=== PATIENT | male | born 1940 | race African-American/Black ===

== ENCOUNTER 2017-06-08 14:13 | Inpatient (IN) | payer MEDICARE ==
[~2017-06-08] VITALS: Ht 180.3 cm; Wt 74.8 kg
--- NOTE | 2017-06-08 14:27 | Emergency Room Report ---
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 He reported feeling dizzy prior to being seen at clinic. He had just taken his blood pressure medications. He reported taking Zofran. The patient recently been given Neulasta after being noted neutropenia.The patient's recent white blood count done earlier today was 0.7 with Anc. 330. He reports having increased hiccups Allergies: Coded Allergies: No Known Allergies (Unverified , 06/08/17) Patient History Past Medical History: see triage record, HTN, other Reviewed Nursing Documentation: PMH: Agreed, PSxH: Agreed Nursing Documentation-PMH Past Medical History: No History, Except For Hx Hypertension: Yes Hx Cancer: Yes - HEAD AND NECK Review of Systems All Other Systems: negative except mentioned in HPI Physical Exam Vital Signs Date Time Temp Pulse Resp B/P (MAP) Pulse Ox O2 Delivery O2 Flow Rate FiO2 06/08/17 14:10 97.9 76 20 133/73 100 Room Air Sp02 EP Interpretation: reviewed, normal General Appearance: normal inspection, alert, Chronically Ill Head: atraumatic ENT: normal ENT inspection, hearing grossly normal, normal voice Neck: normal inspection, full range of motion, supple, no bony tend, other - right sided neck mass Respiratory: normal inspection, lungs clear, normal breath sounds, no respiratory distress, no retraction, no wheezing Cardiovascular #1: regular rate, rhythm, no edema Gastrointestinal: normal inspection, normal bowel sounds, non tender, soft, no guarding, no hernia Genitourinary: no CVA tenderness Musculoskeletal: normal inspection, back normal, normal range of motion Neurologic: normal inspection, alert, oriented x3, responsive, strings teacher III-XII nml as tested, speech normal Psychiatric: normal inspection, judgement/insight normal, mood/affect normal Skin: normal inspection, normal color, no rash Medical Decision Making Diagnostic Impression: Primary Impression: Neutropenia Additional Impressions: Hypotension Near syncope Squamous cell carcinoma of larynx ER Course Patient presented for hypotension generalized weakness. Differential diagnosis included was not limited to neutropenic fever, volume depletion, sepsis, myocardial infarction, pulmonary embolism among others.Because of complexity of patient's case laboratory testing and imaging studies were ordered. Patient was noted to have prior history of Right bundle branch block. Patient was noted to be recently on steroids. Patient was started on IV fluids and IV antibiotics for neutropenia. Dr. Joseph March was contacted for inpatient management. Labs Test 06/08/17 14:56 Lactic Acid Level 2.10 mmol/L (0.66-2.22) EKG Diagnostic Results Rate: other - right bundle branch block Rhythm: NSR ST Segments: no acute changes Rhythm Strip Diag. Results EP Interpretation: yes Rhythm: NSR, no PVC's, no ectopy Last Vital Signs Date Time Temp Pulse Resp B/P (MAP) Pulse Ox O2 Delivery O2 Flow Rate FiO2 06/08/17 14:10 97.9 76 20 133/73 100 Room Air Status: unchanged Disposition: ADMITTED INPATIENT Condition: Johnathan Bearden Jun 08, 2017 14:27
[2017-06-08 14:40] VITALS: BP 133/73
[2017-06-08] MEDS ORDERED: ZOFRAN 4 MG4 MG/2 ML ORAL (14:46)
[2017-06-08] MEDS ORDERED: AZOR 10-20 MG1 EACH ORAL (14:46)
[2017-06-08] MEDS ORDERED: NEULASTA6 MG/0.61 SQ (14:46)
[2017-06-08] MEDS ORDERED: INDOCIN75 MG ORAL (14:49)
[2017-06-08] MEDS ORDERED: TENORMIN50 MG ORAL (14:49)
[2017-06-08] MEDS ORDERED: RAMIPRIL5 MG ORAL (14:49)
[2017-06-08] MEDS ORDERED: PREDNISONE20 MG ORAL (14:49)
[2017-06-08 15:34] LABS: REFLEX LACTIC ACID YES OR NO YES
[2017-06-08] MEDS ORDERED: Cefepime HCl 1 GM in D5W 55 ML IVPB ONE (15:45)
[2017-06-08 17:00] VITALS: BP 101/72
[2017-06-08] MEDS ORDERED: Miralax 17gm pkt ORAL PRN (17:45)
[2017-06-08] MEDS ORDERED: Albuterol/Ipratropium 3ml neb HHN PRN (17:45)
[2017-06-08] MEDS ORDERED: Morphine Sulfate 2mg/ml Inj IVP PRN (17:45)
--- NOTE | 2017-06-08 17:48 | Consultation ---
History of Present Illness General Date patient seen: Jun 08, 2017 Chief Complaint: Generalized Weakness Present Illness HPI 76-year-old male with recently diagnosed laryngeal cancer, Hypertension brought in by EMS from oncology clinic after the dizziness low blood pressure. Patient recently began chemotherapy with cisplatin, taxodere, Prednisone, 5Fluorouracil. He is feeling dizzy prior to being seen at clinic. He had just taken his blood pressure medications. He reported taking Zofran. Allergies: Coded Allergies: No Known Allergies (Unverified , 06/08/17) Medication History Scheduled Amlodipine Bes/Olmesartan Med (Tylor 10-20 Mg Tablet), Unknown Dose ORAL DAILY, ( Reported) Atenolol* (Tenormin*), 50 MG ORAL BID, (Reported) Pegfilgrastim (Neulasta), 6 MG SQ after chemo, (Reported) Prednisone* (Prednisone*), 20 MG ORAL BID, (Reported) Ramipril* (Ramipril*), 5 MG ORAL BID, (Reported) Scheduled PRN Ondansetron* (Zofran*), 8 MG ORAL PRN PRN for Nausea & Vomiting, (Reported) Miscellaneous Medications Indomethacin (Indocin), 75 MG ORAL, (Reported) Patient History Healthcare decision maker N Resuscitation status Advanced Directive on File Review of Systems Constitutional: Reports: no symptoms Eye: Reports: no symptoms ENT: Reports: no symptoms Physical Exam General Appearance: WD/WN Lines, tubes and drains: peripheral, PICC HEENT: normocephalic, anicteric Neck: non-tender, normal alignment Breasts: no masses Cardiovascular/Chest: normal peripheral pulses, regular rhythm Last 24 Hour Vital Signs Date Time Temp Pulse Resp B/P (MAP) Pulse Ox O2 Delivery O2 Flow Rate FiO2 06/08/17 14:10 97.9 76 20 133/73 100 Room Air Laboratory Tests Test 06/08/17 14:56 06/08/17 17:15 Lactic Acid Level 2.10 mmol/L (0.66-2.22) Pending Height (Feet): 5 Height (Inches): 11.00 Weight (Pounds): 165 Medications Current Medications Medications (Trade) Dose Ordered Sig/Baron Route PRN Reason Start Time Stop Time Status Last Admin Dose Admin Acetaminophen (Tylenol) 650 mg Q4H PRN ORAL fever 06/08/17 17:45 07/08/17 17:44 UNV Albuterol/ Ipratropium (Albuterol/ Ipratropium) 3 ml EVERY 4 HOURS PRN HHN Shortness of Breath 06/08/17 17:45 06/13/17 17:44 UNV Cefepime HCl 2 gm/ Dextrose 110 ml @ 220 mls/hr EVERY 12 HOURS IV 06/08/17 21:00 06/15/17 20:59 UNV Heparin Sodium (Porcine) (Heparin 5000 units/ml) 5,000 units EVERY 12 HOURS SUBQ 06/08/17 21:00 07/08/17 20:59 UNV Morphine Sulfate (Morphine Sulfate) 2 mg EVERY 4 HOURS PRN IVP Moderate Pain (Pain Scale 4-6) 06/08/17 17:45 06/15/17 17:44 UNV Nitroglycerin (Ntg) 0.4 mg Every 5 Minutes PRN SL Prn Chest Pain 06/08/17 17:45 07/08/17 17:44 UNV Ondansetron HCl (Zofran) 4 mg Q6H PRN IVP Nausea & Vomiting 06/08/17 17:45 07/08/17 17:44 UNV Polyethylene Glycol (Miralax) 17 gm DAILYPRN PRN ORAL Constipation 06/08/17 17:45 07/08/17 17:44 UNV Ramipril (Altace) 5 mg BID ORAL 06/08/17 18:00 07/08/17 17:59 UNV Temazepam (Restoril) 15 mg HSPRN PRN ORAL Insomnia 06/08/17 17:45 06/15/17 17:44 UNV Vancomycin HCl 1 gm/Dextrose 275 ml @ 183.3 mls/ hr Q24H IV 06/09/17 00:30 06/14/17 00:29 UNV Assessment/Plan Problem List: (1) Neutropenia ICD Codes: D70.9 - Neutropenia, unspecified SNOMED: 837412481 (2) Hypotension ICD Codes: I95.9 - Hypotension, unspecified SNOMED: 44783073 (3) Squamous cell carcinoma of larynx ICD Codes: C32.9 - Malignant neoplasm of larynx, unspecified SNOMED: 750858258 (4) Near syncope ICD Codes: R55 - Syncope and collapse SNOMED: 222218110 Assessment/Plan IV hydration check BC, urine culture Hematology evaluation NG tube GI evaluation check wbc. BRADLEY CLEANING Jun 08, 2017 17:48
[2017-06-08] MEDS ORDERED: Nitroglycerin Subl 0.4mg tab SL PRN (18:00)
[2017-06-08 18:41] VITALS: BP 150/78
[2017-06-08] MEDS ORDERED: Vancomycin 1.5 GM/D5W 250ML IVPB ONE (19:30)
[2017-06-08 20:00] VITALS: BP 109/66
[2017-06-08] MEDS ORDERED: Ramipril 5mg cap ORAL SCH (20:00)
[2017-06-08 20:27] LABS: MEAN CORPUSCULAR HEMOGLOBIN 29.4 PG (27.0-31.0); MEAN CORPUSCULAR HGB CONC 31.2 G/DL (32.0-36.0); MEAN CORPUSCULAR VOLUME 94 FL (80-99); PLATELET COUNT 85 K/UL (150-450); RED BLOOD COUNT 4.56 M/UL (4.70-6.10); RED CELL DISTRIBUTION WIDTH 11.3 % (11.6-14.8)
[2017-06-08 20:41] LABS: ANION GAP 5 mmol/L (5-15); CALCIUM 8.3 MG/DL (8.5-10.1); CARBON DIOXIDE 31 MMOL/L (21-32); CHLORIDE 93 MMOL/L (98-107); CREATININE 1.5 MG/DL (0.55-1.30); POTASSIUM 3.5 MMOL/L (3.5-5.1); SODIUM 129 MMOL/L (136-145)
[2017-06-08 21:01] LABS: WHITE BLOOD COUNT 0.4 K/UL (4.8-10.8)
--- NOTE | 2017-06-08 21:01 | History & Physical ---
History and Physical History & Physicial Joseph March MD Jun 08, 2017 21:01
[2017-06-08 21:55] LABS: ANISOCYTOSIS 1+; HYPOCHROMASIA 1+; LYMPHOCYTES % (MANUAL) 19 % (20-45); NEUTROPHILS % (MANUAL) 57 % (45-75); PLATELET MORPHOLOGY NORMAL; TOTAL CELLS COUNTED 21
[2017-06-08 21:56] LABS: BAND NEUTROPHILS % (MANUAL) 0 % (0-8); BASOPHILS % (MANUAL) 0 % (0-2); EOSINOPHILS % (MANUAL) 0 % (0-3); PLATELET ESTIMATE DECREASED
[2017-06-08] MEDS: D5 1/2NS w/KCl 20mEq 1,000 ML IV SCH (22:17)
--- NOTE | 2017-06-08 22:45 | History and Physical Report ---
DATE OF ADMISSION: 06/08/2017 CHIEF COMPLAINT: Generalized weakness, hiccups, difficulty swallowing, and dizziness. 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 The patient presented to the hospital from Dr. Milton Ibrahim, oncologist, from [facility]. Due to the severe weakness, the patient felt dizzy while he was seen in the clinic. He was found to be hypotensive and he reported that he has been taking Zofran for nausea as well as Neulasta for neutropenia. The patient's blood count was noted to be 0.7 today in the conveyor tender's office and subsequently, the patient was transferred to the hospital for further evaluation and therapy. Shortly after initial evaluation in the emergency room, the patient was admitted to the hospital with neutropenia, hypotension, near syncope, severe dehydration, and squamous cell carcinoma of the larynx. PAST MEDICAL HISTORY/PAST SURGICAL HISTORY: As above. History of laryngeal squamous cell carcinoma, recently diagnosed, underwent first cycle of chemotherapy. The patient has history of high blood pressure. Denies any past surgical history except tonsillectomy in childhood as well as Freire's Palsy. MEDICATIONS: At home significant for Tylor 10/20 mg one tablet daily, atenolol 50 mg twice a day, indomethacin 75 mg daily, Zofran 8 mg q.8 h. p.r.n., Neulasta 6 mg after chemo and prednisone 20 mg b.i.d., and ramipril 5 mg twice a day. ALLERGIES: No known drug allergies. SOCIAL HISTORY: No smoking, alcohol, or drugs. He is a retired anesthesiologist. FAMILY HISTORY: Significant for hypertension in father. REVIEW OF SYSTEMS: Mostly as above. Denies any dysuria or frequency. He complained about difficulty swallowing and eating. Denies any hemoptysis or hematochezia. Denies any bright red blood per rectum. Denies any double vision. Denies any seizure activity. Denies any bright red blood per rectum. PHYSICAL EXAMINATION: VITAL SIGNS: On admission, temperature 97.9 degrees, pulse of 76, respirations 20, and blood pressure 133/74. GENERAL: The patient awake, responsive, in no acute distress. HEAD AND NECK: Pupils equal and reactive to light. Anicteric. NECK: Supple. He has a mass in the neck area that was noted on the right side. No JVD was appreciated. LUNGS: Good air entry. No wheezing or rales. Decreased air in the bases. Poor inspiratory effort. HEART: S1 and S2. Regular rhythm. No gallops. ABDOMEN: Soft, nondistended, and nontender. Positive bowel sounds. EXTREMITIES: No cyanosis, clubbing, or edema. NEUROLOGIC: Cranial nerves II through XII grossly unremarkable. Motor is 5/5 in all extremities. Gait was not assessed due to the patient's status. PSYCHIATRIC: Mood is depressed. LABORATORY AND DIAGNOSTIC DATA: Laboratory on admission still pending, however, laboratory today from the [facility] noted that the patient has WBC of 0.7, hemoglobin of 15, hematocrit 46, and platelets are 78. Glucose is 205, BUN is 40, creatinine 1.5, sodium is 127, potassium is 3.5, chloride is 88, and bicarbonate is 27. Total bilirubin of 1.0. AST of 27, ALT of 25, and alkaline phosphatase 46. ASSESSMENT: 1. Neutropenic. 2. Severe dehydration and hypovolemia. 3. History of locally advanced laryngeal squamous cell carcinoma. 4. History of hypertension, presently hypotensive. 5. Thrombocytopenia. 6. Dysphagia. PLAN: Admit the patient to telemetry. We will follow up laboratory. Discussed with the patient as well as extensively at the bedside. Code status, Full Code. Discussed with the patient with regards to the bedside swallow study. If he fails the bedside swallow study, consider to have a PEG placement. Thorazine for hiccups. Code status is Full Code. We will resume home medications in the morning after the swallow study and we will try to discuss with Dr. Ibrahim, conveyor tender, in the morning and DVT prophylaxis with SCD. Joseph March M.D. DR: Balbina JOB#: [id number] CC:
[2017-06-08] MEDS ORDERED: Cefepime HCl 2 GM in D5W 55 ML IV SCH (23:00)
[2017-06-09] MEDS ORDERED: Vancomycin 1 GM in D5W 275 ML IV SCH (00:30)
[2017-06-09 04:00] VITALS: BP 134/73
[2017-06-09 06:01] LABS: INR 1.1 (0.9-1.1)
[2017-06-09 06:07] LABS: ALANINE AMINOTRANSFERASE 20 U/L (12-78); ALBUMIN/GLOBULIN RATIO 0.6 (1.0-2.7); ANION GAP 4 mmol/L (5-15); ASPARTATE AMINO TRANSFERASE 19 U/L (15-37); CALCIUM 8.2 MG/DL (8.5-10.1); CARBON DIOXIDE 31 MMOL/L (21-32); CHLORIDE 93 MMOL/L (98-107); CREATININE 1.5 MG/DL (0.55-1.30); POTASSIUM 3.3 MMOL/L (3.5-5.1); SODIUM 128 MMOL/L (136-145); TOTAL PROTEIN 6.2 G/DL (6.4-8.2)
[2017-06-09 06:25] LABS: MEAN CORPUSCULAR HEMOGLOBIN 30.9 PG (27.0-31.0); MEAN CORPUSCULAR HGB CONC 33.4 G/DL (32.0-36.0); MEAN CORPUSCULAR VOLUME 93 FL (80-99); PLATELET COUNT 84 K/UL (150-450); RED BLOOD COUNT 4.42 M/UL (4.70-6.10); RED CELL DISTRIBUTION WIDTH 11.2 % (11.6-14.8)
[2017-06-09 06:29] LABS: WHITE BLOOD COUNT 0.6 K/UL (4.8-10.8)
[2017-06-09 07:35] LABS: MAGNESIUM 1.3 MG/DL (1.8-2.4); PHOSPHORUS 2.9 MG/DL (2.5-4.9)
[2017-06-09 07:43] LABS: ANISOCYTOSIS 1+; BAND NEUTROPHILS % (MANUAL) 0 % (0-8); BASOPHILS % (MANUAL) 0 % (0-2); EOSINOPHILS % (MANUAL) 0 % (0-3); LYMPHOCYTES % (MANUAL) 88 % (20-45); NEUTROPHILS % (MANUAL) 6 % (45-75); PLATELET ESTIMATE DECREASED; PLATELET MORPHOLOGY NORMAL; TOTAL CELLS COUNTED 100
[2017-06-09 08:00] VITALS: BP 127/72
[2017-06-09] MEDS: D5 1/2NS w/KCl 20mEq 1,000 ML IV SCH (08:00)
--- NOTE | 2017-06-09 08:26 | Diagnostic Imaging Report ---
Indication: SOB Technique: One view of the chest Comparison: none Findings: The lungs and pleural spaces are clear. There is a left arm PICC or port catheter heart size is normal Impression: No acute process
[2017-06-09] MEDS ORDERED: Heparin 5000 units/ml inj SUBQ SCH (09:00)
--- NOTE | 2017-06-09 09:02 | Consultation ---
DATE OF CONSULTATION: 06/08/2017 HEMATOLOGY/ONCOLOGY CONSULTATION CONSULTING PHYSICIAN: Tripp Quispe M.D. REFERRING PHYSICIAN: Joseph March M.D. REASON FOR CONSULTATION: Evaluation of laryngeal carcinoma. IDENTIFYING DATA: Dear Dr. March: The patient is a pleasant 76-year-old male with past medical history significant for laryngeal carcinoma, history of hypertension, at this time presents from Hematology/Oncology clinic with a history of squamous cell carcinoma of the larynx. Review of the record admitted to [facility] and Hematology/Oncology Services consulted for further evaluation and treatment. The patient is getting cisplatinum, taxotere, prednisone and 5-FU as the standard of care. now presents for further evaluation and care. He is actually an anesthesiologist. A1C noted to be . Review of the record reveals that he is also on heparin subcutaneously and was administered one dose of Neupogen. Repeat A1C tomorrow. A CBC has been ordered. PAST MEDICAL HISTORY: Laryngeal carcinoma, status post chemotherapy. PAST SURGICAL HISTORY: None reported. ALLERGIES: No known drug allergies. REVIEW OF SYSTEMS: CONSTITUTIONAL: No fevers, chills, or night sweats. SKIN: No rashes, bumps, or itching. HEENT: No headache, hearing or vision changes. BREASTS: No lumps, pain, or discharge. PULMONARY: No cough, sputum, or shortness of breath. GASTROINTESTINAL: No nausea, vomiting, or diarrhea. GENITOURINARY: No dysuria, frequency, or urgency. MUSCULOSKELETAL: No joint swelling, muscle pain, or trauma. PHYSICAL EXAMINATION: GENERAL: No acute distress. VITAL SIGNS: Reviewed. PULMONARY: Decreased breath sounds. CARDIOVASCULAR: Regular rate. No S3 or S4. ABDOMEN: Soft, nontender, and nondistended. EXTREMITIES: There is 1+ edema. LABORATORY DATA: Lactic acid 2.1. CBC is pending. ASSESSMENT AND PLAN: 1. Laryngeal carcinoma, squamous cell, on cisplatinum, Taxotere, prednisone, and 5-fluorouracil. Continue . Continue hydration therapy as this is very toxic to the kidneys and the patient has neutropenia, therefore may need Neupogen, however, CBC is pending. 2. Neutropenia history. CBC at this time is pending. We will obtain CBC prior to Neupogen. 3. Lactic acidosis, slightly elevated lactic acid. Other labs are pending. 4. Dehydration, likely secondary to recent administration of chemotherapy. 5. Hypertension, currently well controlled with amlodipine and . I appreciate the consultation. Tripp Quispe M.D. DR: LAUREL JOB#: [id number] CC:
--- NOTE | 2017-06-09 10:35 | Diagnostic Imaging Report ---
Indication: SOB Technique: One view of the chest Comparison: 06/08/2017 Findings: Left arm PICC again demonstrated. Lungs and pleural spaces are clear. Heart size is normal Impression: Negative
--- NOTE | 2017-06-09 10:51 | Diagnostic Imaging Report ---
Indication: Status post nasogastric tube placement Technique: Supine view of the abdomen Comparison: None Findings: There is a weighted nasogastric feeding tube, tip coiled in the gastric fundus. Bowel gas pattern is unremarkable. Impression: Nasogastric feeding tube tip coiled in the gastric fundus
[2017-06-09 12:00] VITALS: BP 135/77
--- NOTE | 2017-06-09 12:52 | Pulmonology Progress Note ---
Assessment/Plan Problems: (1) Neutropenia (2) Hypotension (3) Squamous cell carcinoma of larynx (4) Near syncope Assessment/Plan start feeding neutropenic isolation check electrolytes hematology consult appreciated GI consult pending/ Subjective ROS Limited/Unobtainable: No Interval Events: c/o hunger, less hiccup Allergies: Coded Allergies: No Known Allergies (Unverified , 06/08/17) Objective Last 24 Hour Vital Signs Date Time Temp Pulse Resp B/P (MAP) Pulse Ox O2 Delivery O2 Flow Rate FiO2 06/09/17 12:00 97.0 91 20 135/77 98 Room Air 06/09/17 09:58 85 127/72 06/09/17 08:00 97.5 85 21 127/72 97 Room Air 06/09/17 06:52 85 18 Room Air 06/09/17 04:00 97.0 81 18 134/73 96 Room Air 06/09/17 02:34 81 06/09/17 00:00 78 06/08/17 20:00 97.9 82 20 109/66 97 Room Air 06/08/17 18:41 97.9 82 20 150/78 98 Room Air 06/08/17 18:30 97.9 20 133/73 100 Room Air 06/08/17 17:00 98.0 77 18 101/72 98 Room Air 06/08/17 14:40 97.9 20 133/73 100 Room Air 06/08/17 14:10 97.9 76 20 133/73 100 Room Air General Appearance: cachetic HEENT: normocephalic, atraumatic Respiratory/Chest: chest wall non-tender, lungs clear Cardiovascular: normal peripheral pulses, normal rate Abdomen: normal bowel sounds, soft, non tender Genitourinary: normal external genitalia Extremities: no cyanosis Skin: no lesions Neurologic/Psychiatric: functional tester II-XII grossly normal Lymphatic: no neck adenopathy Laboratory Tests 06/08/17 14:56: Lactic Acid Level 2.10 06/08/17 17:15: Lactic Acid Level 2.10 06/08/17 20:15: White Blood Count 0.4*L, Red Blood Count 4.56L, Hemoglobin 13.4L, Hematocrit 42.9, Mean Corpuscular Volume 94, Mean Corpuscular Hemoglobin 29.4, Mean Corpuscular Hemoglobin Concent 31.2L, Red Cell Distribution Width 11.3L, Platelet Count 85L, Mean Platelet Volume 10.0, Neutrophils (%) (Auto) , Lymphocytes (%) (Auto) , Monocytes (%) (Auto) , Eosinophils (%) (Auto) , Basophils (%) (Auto) , CBC Comment , Differential Total Cells Counted 21, Neutrophils % (Manual) 57, Lymphocytes % (Manual) 19L, Monocytes % (Manual) 24H , Eosinophils % (Manual) 0, Basophils % (Manual) 0, Band Neutrophils 0, Platelet Estimate DecreasedL, Platelet Morphology Normal, Hypochromasia 1+, Anisocytosis 1+, Sodium Level 129L, Potassium Level 3.5, Chloride Level 93L, Carbon Dioxide Level 31, Anion Gap 5, Blood Urea Nitrogen 40H, Creatinine 1.5H, Estimat Glomerular Filtration Rate , Glucose Level 191H, Calcium Level 8.3L 06/09/17 05:15: White Blood Count 0.6*L, Red Blood Count 4.42L, Hemoglobin 13.7L, Hematocrit 41.0L, Mean Corpuscular Volume 93, Mean Corpuscular Hemoglobin 30.9, Mean Corpuscular Hemoglobin Concent 33.4, Red Cell Distribution Width 11.2L, Platelet Count 84L, Mean Platelet Volume 11.0H, Neutrophils (%) (Auto) , Lymphocytes (%) (Auto) , Monocytes (%) (Auto) , Eosinophils (%) (Auto) , Basophils (%) (Auto) , Differential Total Cells Counted 100, Neutrophils % ( Manual) 6L, Lymphocytes % (Manual) 88H, Monocytes % (Manual) 6, Eosinophils % ( Manual) 0, Basophils % (Manual) 0, Band Neutrophils 0, Platelet Estimate DecreasedL, Platelet Morphology Normal, Anisocytosis 1+, Sodium Level 128L, Potassium Level 3.3L, Chloride Level 93L, Carbon Dioxide Level 31, Anion Gap 4L , Blood Urea Nitrogen 34H, Creatinine 1.5H, Estimat Glomerular Filtration Rate , Glucose Level 165H, Calcium Level 8.2L, Prothrombin Time 12.0H, Prothromb Time International Ratio 1.1, Activated Partial Thromboplast Time 32, Phosphorus Level 2.9, Magnesium Level 1.3L, Total Bilirubin 0.9, Aspartate Amino Transf (AST/SGOT) 19, Alanine Aminotransferase (ALT/SGPT) 20, Alkaline Phosphatase 37L, Total Protein 6.2L, Albumin 2.4L, Globulin 3.8, Albumin/ Globulin Ratio 0.6L Current Medications Medications (Trade) Dose Ordered Sig/Baron Route PRN Reason Start Time Stop Time Status Last Admin Dose Admin Acetaminophen (Tylenol) 650 mg Q4H PRN ORAL T>100.5 06/08/17 17:45 07/08/17 17:44 06/08/17 23:22 Albuterol/ Ipratropium (Albuterol/ Ipratropium) 3 ml Q4H PRN HHN Shortness of Breath 06/08/17 17:45 06/13/17 17:44 Amlodipine Besylate (Norvasc) 5 mg DAILY ORAL 06/09/17 09:00 07/09/17 08:59 06/09/17 09:58 Cefepime HCl 2 gm/ Dextrose 55 ml @ 110 mls/hr Q24H IV 06/08/17 23:00 06/15/17 22:59 06/09/17 00:08 Chlorhexidine Gluconate (Jaclyn-Hex 2%) 1 applic DAILY@2000 TOPIC 06/09/17 20:00 07/09/17 19:59 Chlorpromazine (Thorazine) 25 mg Q8H PRN IM hiccups 06/08/17 20:45 07/08/17 20:44 Heparin Sodium (Porcine) (Heparin 5000 units/ml) 5,000 units EVERY 12 HOURS SUBQ 06/09/17 09:00 07/09/17 08:59 Morphine Sulfate (Morphine Sulfate) 2 mg Q4H PRN IVP Moderate Pain (Pain Scale 4-6) 06/08/17 17:45 06/15/17 17:44 Nitroglycerin (Ntg) 0.4 mg Q5MIN X 3 DOSES PRN SL Prn Chest Pain 06/08/17 18:00 07/08/17 17:59 Ondansetron HCl (Zofran) 4 mg Q6H PRN IVP Nausea & Vomiting 06/08/17 17:45 07/08/17 17:44 Polyethylene Glycol (Miralax) 17 gm DAILYPRN PRN ORAL Constipation 06/08/17 17:45 07/08/17 17:44 Potassium Chloride 40 meq/ Dextrose/Sodium Chloride 1,020 ml @ 75 mls/hr [id number] IV 06/09/17 09:00 07/09/17 08:59 06/09/17 10:00 Tbo-Filgrastim (Granix) 300 mcg QHS SQ 06/09/17 21:00 07/09/17 20:59 Temazepam (Restoril) 15 mg HSPRN PRN ORAL Insomnia 06/08/17 21:00 06/15/17 20:59 Vancomycin HCl (Vanco rx to dose) 1 ea DAILY PRN MISC . 06/08/17 18:15 07/08/17 18:14 Vancomycin/Sodium Chloride 250 ml @ 166.667 mls/hr Q24H IVPB 06/09/17 18:00 06/14/17 17:59 BRADLEY CLEANING Jun 09, 2017 12:52
--- NOTE | 2017-06-09 13:45 | Consultation ---
Consult Note Consult Note ID CONSULT: Dict# [id number] Assessment/Plan ASSESSMENT: 76 y/o male with: // Neutropenia / pancytopenia 2/2 antineoplastic chemotherapy, afebrile r/o infection - cultures pending - ANC=36 - CXR: NAF // Odynophagia / dysphagia r/o helena // Laryngeal CA SP chemo # 1 ( 06/02 ) // Near syncope // Dehydration // ROYAL, m/l pre-renal dehydration // Hyponatremia / electrolyte imbalance // Hyperglycemia // Recent LUE PICC ~1week // HTN // NKDA // Full Code PLAN: - continue empiric IV vancomycin, cefepime d# 2 while neutropenic. Add fluconazole d# 1 yeast coverage - neupogen per heme/onc - f/u cultures - monitor CBC, temperatures - monitor BMP - neutropenic precautions - IVF / nutritional support Thanks! Will follow JUAN LONG Jun 09, 2017 13:45
[2017-06-09] MEDS ORDERED: Nitroglycerin Subl 0.4mg tab SL PRN (14:00)
[2017-06-09 16:00] VITALS: BP 143/73
--- NOTE | 2017-06-09 16:03 | Internal Med Progress Note ---
Subjective Physician Name Joseph March Attending Physician Joseph March MD Current Medications Medications (Trade) Dose Ordered Sig/Baron Route PRN Reason Start Time Stop Time Status Last Admin Dose Admin Acetaminophen (Tylenol) 650 mg Q4H PRN ORAL T>100.5 06/09/17 14:30 07/08/17 14:29 Albuterol/ Ipratropium (Albuterol/ Ipratropium) 3 ml Q4H PRN HHN Shortness of Breath 06/09/17 17:45 06/13/17 17:44 Amlodipine Besylate (Norvasc) 5 mg DAILY ORAL 06/10/17 09:00 07/09/17 08:59 Cefepime HCl 2 gm/ Dextrose 55 ml @ 110 mls/hr Q24H IV 06/09/17 23:00 06/15/17 22:59 Chlorhexidine Gluconate (Jaclyn-Hex 2%) 1 applic DAILY@2000 TOPIC 06/09/17 20:00 07/09/17 19:59 Chlorpromazine (Thorazine) 25 mg Q8H PRN IM hiccups 06/09/17 14:30 07/08/17 14:29 Fluconazole/ Sodium Chloride 100 ml @ 100 mls/hr Q24H IV 06/09/17 15:00 06/16/17 14:59 Heparin Sodium (Porcine) (Heparin 5000 units/ml) 5,000 units EVERY 12 HOURS SUBQ 06/09/17 21:00 07/09/17 08:59 Magnesium Sulfate 100 ml @ 100 mls/hr Q1H IVPB 06/09/17 15:30 06/09/17 17:29 UNV Morphine Sulfate (Morphine Sulfate) 2 mg Q4H PRN IVP Moderate Pain (Pain Scale 4-6) 06/09/17 14:30 06/15/17 14:29 Nitroglycerin (Ntg) 0.4 mg Q5MIN X 3 DOSES PRN SL Prn Chest Pain 06/09/17 14:00 07/08/17 17:59 Ondansetron HCl (Zofran) 4 mg Q6H PRN IVP Nausea & Vomiting 06/09/17 14:30 07/08/17 14:29 Polyethylene Glycol (Miralax) 17 gm DAILYPRN PRN ORAL Constipation 06/09/17 14:30 07/08/17 14:29 Potassium Chloride 40 meq/ Dextrose/Sodium Chloride 1,020 ml @ 75 mls/hr [id number] IV 06/09/17 14:30 07/09/17 14:29 Tbo-Filgrastim (Granix) 300 mcg QHS SQ 06/09/17 21:00 07/09/17 20:59 Temazepam (Restoril) 15 mg HSPRN PRN ORAL Insomnia 06/09/17 21:00 06/15/17 20:59 Vancomycin HCl (Vanco rx to dose) 1 ea DAILY PRN MISC . 06/09/17 14:30 07/09/17 14:29 Vancomycin/Sodium Chloride 250 ml @ 166.667 mls/hr Q24H IVPB 06/09/17 18:00 06/14/17 17:59 Allergies: Coded Allergies: No Known Allergies (Unverified , 06/08/17) Subjective awake, alert, responsive, still has hiccups, No CP or SOB. NG Tube placement. Objective Last Vital Signs Date Time Temp Pulse Resp B/P (MAP) Pulse Ox O2 Delivery O2 Flow Rate FiO2 06/09/17 12:00 97.0 91 20 135/77 98 Room Air Laboratory Tests Test 06/08/17 17:15 06/08/17 20:15 06/09/17 05:15 Lactic Acid Level 2.10 mmol/L (0.66-2.22) White Blood Count 0.4 K/UL (4.8-10.8) *L 0.6 K/UL (4.8-10.8) *L Red Blood Count 4.56 M/UL (4.70-6.10) L 4.42 M/UL (4.70-6.10) L Hemoglobin 13.4 G/DL (14.2-18.0) L 13.7 G/DL (14.2-18.0) L Hematocrit 42.9 % (42.0-52.0) 41.0 % (42.0-52.0) L Mean Corpuscular Volume 94 FL (80-99) 93 FL (80-99) Mean Corpuscular Hemoglobin 29.4 PG (27.0-31.0) 30.9 PG (27.0-31.0) Mean Corpuscular Hemoglobin Concent 31.2 G/DL (32.0-36.0) L 33.4 G/DL (32.0-36.0) Red Cell Distribution Width 11.3 % (11.6-14.8) L 11.2 % (11.6-14.8) L Platelet Count 85 K/UL (150-450) L 84 K/UL (150-450) L Mean Platelet Volume 10.0 FL (6.5-10.1) 11.0 FL (6.5-10.1) H Neutrophils (%) (Auto) % (45.0-75.0) % (45.0-75.0) Lymphocytes (%) (Auto) % (20.0-45.0) % (20.0-45.0) Monocytes (%) (Auto) % (1.0-10.0) % (1.0-10.0) Eosinophils (%) (Auto) % (0.0-3.0) % (0.0-3.0) Basophils (%) (Auto) % (0.0-2.0) % (0.0-2.0) CBC Comment Differential Total Cells Counted 21 100 Neutrophils % (Manual) 57 % (45-75) 6 % (45-75) L Lymphocytes % (Manual) 19 % (20-45) L 88 % (20-45) H Monocytes % (Manual) 24 % (1-10) H 6 % (1-10) Eosinophils % (Manual) 0 % (0-3) 0 % (0-3) Basophils % (Manual) 0 % (0-2) 0 % (0-2) Band Neutrophils 0 % (0-8) 0 % (0-8) Platelet Estimate Decreased L Decreased L Platelet Morphology Normal Normal Hypochromasia 1+ Anisocytosis 1+ 1+ Sodium Level 129 MMOL/L (136-145) L 128 MMOL/L (136-145) L Potassium Level 3.5 MMOL/L (3.5-5.1) 3.3 MMOL/L (3.5-5.1) L Chloride Level 93 MMOL/L (98-107) L 93 MMOL/L (98-107) L Carbon Dioxide Level 31 MMOL/L (21-32) 31 MMOL/L (21-32) Anion Gap 5 mmol/L (5-15) 4 mmol/L (5-15) L Blood Urea Nitrogen 40 mg/dL (7-18) H 34 mg/dL (7-18) H Creatinine 1.5 MG/DL (0.55-1.30) H 1.5 MG/DL (0.55-1.30) H Estimat Glomerular Filtration Rate mL/min (>60) mL/min (>60) Glucose Level 191 MG/DL (74-106) H 165 MG/DL (74-106) H Calcium Level 8.3 MG/DL (8.5-10.1) L 8.2 MG/DL (8.5-10.1) L Prothrombin Time 12.0 SEC (9.30-11.50) H Prothromb Time International Ratio 1.1 (0.9-1.1) Activated Partial Thromboplast Time 32 SEC (23-33) Phosphorus Level 2.9 MG/DL (2.5-4.9) Magnesium Level 1.3 MG/DL (1.8-2.4) L Total Bilirubin 0.9 MG/DL (0.2-1.0) Aspartate Amino Transf (AST/SGOT) 19 U/L (15-37) Alanine Aminotransferase (ALT/SGPT) 20 U/L (12-78) Alkaline Phosphatase 37 U/L (46-116) L Total Protein 6.2 G/DL (6.4-8.2) L Albumin 2.4 G/DL (3.4-5.0) L Globulin 3.8 g/dL Albumin/Globulin Ratio 0.6 (1.0-2.7) L Objective GENERAL: The patient awake, responsive, in no acute distress. HEAD AND NECK: Pupils equal and reactive to light. Anicteric. + NG Tube. NECK: Supple. He has a mass in the neck area that was noted on the right side. No JVD was appreciated. LUNGS: Good air entry. No wheezing or rales. Decreased air in the bases. Poor inspiratory effort. HEART: S1 and S2. Regular rhythm. No gallops. ABDOMEN: Soft, nondistended, and nontender. Positive bowel sounds. EXTREMITIES: No cyanosis, clubbing, or edema. NEUROLOGIC: Cranial nerves II through XII grossly unremarkable. Motor is 5/5 in all extremities. Gait was not assessed due to the patient's status. PSYCHIATRIC: Mood is depressed. Assessment/Plan Assessment/Plan ASSESSMENT: 1. Neutropenic / Pancytopenia most likely chemotherapy induced. 2. Severe dehydration and hypovolemia. 3. History of locally advanced laryngeal squamous cell carcinoma. 4. History of hypertension, presently hypotensive. 5. Dysphagia s/p NG tube placement. 6. Hypokalemia. 7. Hypomagnesemia PLAN: DC telemetry. AM laboratory. Start Tube feeding. Code status, Full Code. Consider PEG placement. Thorazine for hiccups. Code status is Full Code. DVT prophylaxis with SCD. Abx: Vanco / Cefepime start Gronix Mg IV, IVF Joseph March MD Jun 09, 2017 16:03
--- NOTE | 2017-06-09 17:17 | General Progress Note ---
Assessment/Plan Assessment/Plan ASSESSMENT AND PLAN: 1. Laryngeal carcinoma, squamous cell, on cisplatinum, Taxotere, prednisone, and 5-fluorouracil. 2. Neutropenia history. Has been given neupogen. 3. Lactic acidosis, slightly elevated lactic acid. 4. Dehydration, likely secondary to recent administration of chemotherapy. 5. Hypertension, currently well controlled Subjective Allergies: Coded Allergies: No Known Allergies (Unverified , 06/08/17) All Systems: reviewed and negative except above Subjective NAD Objective Last 24 Hour Vital Signs Date Time Temp Pulse Resp B/P (MAP) Pulse Ox O2 Delivery O2 Flow Rate FiO2 06/09/17 16:00 96.8 98 20 143/73 98 Room Air 06/09/17 12:00 97.0 91 20 135/77 98 Room Air 06/09/17 09:58 85 127/72 06/09/17 08:00 97.5 85 21 127/72 97 Room Air 06/09/17 06:52 85 18 Room Air 06/09/17 04:00 97.0 81 18 134/73 96 Room Air 06/09/17 02:34 81 06/09/17 00:00 78 06/08/17 20:00 97.9 82 20 109/66 97 Room Air 06/08/17 18:41 97.9 82 20 150/78 98 Room Air 06/08/17 18:30 97.9 20 133/73 100 Room Air Laboratory Tests 06/08/17 20:15: White Blood Count 0.4*L, Red Blood Count 4.56L, Hemoglobin 13.4L, Hematocrit 42.9, Mean Corpuscular Volume 94, Mean Corpuscular Hemoglobin 29.4, Mean Corpuscular Hemoglobin Concent 31.2L, Red Cell Distribution Width 11.3L, Platelet Count 85L, Mean Platelet Volume 10.0, Neutrophils (%) (Auto) , Lymphocytes (%) (Auto) , Monocytes (%) (Auto) , Eosinophils (%) (Auto) , Basophils (%) (Auto) , CBC Comment , Differential Total Cells Counted 21, Neutrophils % (Manual) 57, Lymphocytes % (Manual) 19L, Monocytes % (Manual) 24H , Eosinophils % (Manual) 0, Basophils % (Manual) 0, Band Neutrophils 0, Platelet Estimate DecreasedL, Platelet Morphology Normal, Hypochromasia 1+, Anisocytosis 1+, Sodium Level 129L, Potassium Level 3.5, Chloride Level 93L, Carbon Dioxide Level 31, Anion Gap 5, Blood Urea Nitrogen 40H, Creatinine 1.5H, Estimat Glomerular Filtration Rate , Glucose Level 191H, Calcium Level 8.3L 06/09/17 05:15: White Blood Count 0.6*L, Red Blood Count 4.42L, Hemoglobin 13.7L, Hematocrit 41.0L, Mean Corpuscular Volume 93, Mean Corpuscular Hemoglobin 30.9, Mean Corpuscular Hemoglobin Concent 33.4, Red Cell Distribution Width 11.2L, Platelet Count 84L, Mean Platelet Volume 11.0H, Neutrophils (%) (Auto) , Lymphocytes (%) (Auto) , Monocytes (%) (Auto) , Eosinophils (%) (Auto) , Basophils (%) (Auto) , Differential Total Cells Counted 100, Neutrophils % ( Manual) 6L, Lymphocytes % (Manual) 88H, Monocytes % (Manual) 6, Eosinophils % ( Manual) 0, Basophils % (Manual) 0, Band Neutrophils 0, Platelet Estimate DecreasedL, Platelet Morphology Normal, Anisocytosis 1+, Sodium Level 128L, Potassium Level 3.3L, Chloride Level 93L, Carbon Dioxide Level 31, Anion Gap 4L , Blood Urea Nitrogen 34H, Creatinine 1.5H, Estimat Glomerular Filtration Rate , Glucose Level 165H, Calcium Level 8.2L, Prothrombin Time 12.0H, Prothromb Time International Ratio 1.1, Activated Partial Thromboplast Time 32, Phosphorus Level 2.9, Magnesium Level 1.3L, Total Bilirubin 0.9, Aspartate Amino Transf (AST/SGOT) 19, Alanine Aminotransferase (ALT/SGPT) 20, Alkaline Phosphatase 37L, Total Protein 6.2L, Albumin 2.4L, Globulin 3.8, Albumin/ Globulin Ratio 0.6L Height (Feet): 5 Height (Inches): 11.00 Weight (Pounds): 165 General Appearance: no apparent distress EENT: PERRL/EOMI Neck: normal alignment Cardiovascular: normal peripheral pulses Abdomen: non tender Extremities: non-tender Neurologic: associate financial planner II-XII grossly normal Skin: normal pigmentation Tripp Quispe Jun 09, 2017 17:17
[2017-06-09] MEDS ORDERED: Albuterol/Ipratropium 3ml neb HHN PRN (17:45)
[2017-06-09] MEDS ORDERED: Vancomycin 750mg/NS 250ml IVPB SCH (18:00)
[2017-06-09] MEDS ORDERED: Vancomycin 750mg/NS 250ml 250 ML IVPB SCH (18:00)
[2017-06-09 19:25] VITALS: BP 149/89
[2017-06-09] MEDS ORDERED: Dyna-Hex 2% Top Sol 2oz TOPIC SCH (20:00)
[2017-06-09] MEDS ORDERED: TBO-Filgrastim 300 mcg/0.5ml SQ SCH ×2 (21:00)
[2017-06-09] MEDS: Heparin 5000 units/ml inj SUBQ SCH (21:00)
[2017-06-09] MEDS: TBO-Filgrastim 300 mcg/0.5ml SQ SCH (21:14)
[2017-06-09] MEDS: Dyna-Hex 2% Top Sol 2oz TOPIC SCH (21:15)
[2017-06-09] MEDS ORDERED: Cefepime 2gm ONE (23:51)
[2017-06-10] VITALS (7 sets, daily range): BP systolic 105–146; BP diastolic 63–90
--- NOTE | 2017-06-10 00:02 | Consultation ---
DATE OF CONSULTATION: 06/09/2017 INFECTIOUS DISEASE CONSULTATION REQUESTING PHYSICIAN: Joseph March M.D. REASON FOR CONSULTATION: Neutropenia. HISTORY OF PRESENT ILLNESS: This is a 76-year-old male with laryngeal cancer status post first round of chemotherapy on 06/02/2017 admitted on 06/09/2017 with dysphagia, odynophagia, dehydration and near syncope. Evidence of profound neutropenia, renal insufficiency and electrolyte imbalance. No documented fevers. Pancultures are pending. Chest x-ray shows no acute findings. He has been started on empiric IV vancomycin, cefepime and Neupogen and ID now consulted to assist in management. PAST MEDICAL HISTORY: 1. Hypertension. 2. Laryngeal cancer status post first round of chemotherapy on 06/02/2017. Oncologist is Dr. Ibrahim. 3. History of Freire's palsy. PAST SURGICAL HISTORY: Tonsillectomy and adenoidectomy. ALLERGIES: No known drug allergies. MEDICATIONS: 1. Vancomycin. 2. Cefepime. 3. Neupogen. 4. Subcutaneous heparin. 5. Norvasc. FAMILY HISTORY: Reviewed and noncontributory. SOCIAL HISTORY: The patient is a retired anesthesiologist. No active tobacco, alcohol, or illicit drug abuse. REVIEW OF SYSTEMS: As per history of present illness. Ten systems reviewed. All pertinent positives and negatives noted. PHYSICAL EXAMINATION: VITAL SIGNS: Maximum temperature 98 degrees, blood pressure 135/77, heart rate in the 80s, respiratory rate 20, and saturating 98% on room air. GENERAL: No apparent distress. Nontoxic appearing. HEENT: Dobbhoff tube in place. Pharyngeal erythema. CARDIOVASCULAR: Regular rate and rhythm. No murmurs. PULMONARY: Clear to auscultation bilaterally. ABDOMEN: Bowel sounds present. Soft, nondistended, and nontender. EXTREMITIES: No edema. SKIN: No rash. NEUROLOGICAL: Alert and oriented x3, nonfocal. LABORATORY DATA: White blood cell count 0.6 with an absolute neutrophil count of 36, hemoglobin 13.6, and platelets 84. Sodium 128, potassium 3.3, chloride 93, bicarbonate 31, BUN 34, creatinine 1.5, and glucose 165. Lactic acid 2.1. Liver function tests within normal limits. MICROBIOLOGY: 1. On 06/09/2017, urine culture pending. 2. On 06/08/2017, blood culture pending. 3. On 06/08/2017, sputum culture pending. IMAGIN. On 06/09/2017, chest x-ray, no acute findings. 2. On 06/09/2017, echocardiogram pending. ASSESSMENT: 1. Neutropenia/pancytopenia secondary to antineoplastic chemotherapy, afebrile rule out infection. Cultures are pending. Absolute neutrophil count is 36. Chest x-ray shows no acute findings. 2. Odynophagia and dysphagia, rule out Inga. 3. Laryngeal cancer status post chemotherapy #1 on 06/02/2017. 4. Near syncope. 5. Dehydration. 6. Acute renal insufficiency, most likely prerenal dehydration. 7. Hyponatremia/electrolyte imbalance. 8. Hyperglycemia. 9. Recent left upper extremity PICC line placed approximately 1 week ago. 10. Hypertension. 11. No known drug allergies. 12. Full Code. TREATMENT: 1. Continue empiric IV vancomycin and cefepime day #2. 2. Neutropenia. We will add empiric fluconazole day #1, yeast coverage. 3. Neupogen per heme. 4. Follow up cultures. 5. Monitor CBC and temperatures. 6. Monitor BMP. 7. Neutropenic precautions. 8. Intravenous fluids and nutritional support. Thank you. We will follow. Allen Hammer M.D. DR: CAREN JOB#: [id number] CC: Joseph March M.D.; Fax#: [phone] Bi May M.D; FAX#: [phone]
[2017-06-10] MEDS: Cefepime HCl 2 GM in D5W 55 ML IV SCH ×2 (00:03→22:51)
[2017-06-10 05:53] LABS: MEAN CORPUSCULAR HGB CONC 33.7 G/DL (32.0-36.0); MEAN CORPUSCULAR VOLUME 92 FL (80-99); MEAN PLATELET VOLUME 11.4 FL (6.5-10.1); PLATELET COUNT 80 K/UL (150-450); RED BLOOD COUNT 4.43 M/UL (4.70-6.10)
[2017-06-10 06:15] LABS: WHITE BLOOD COUNT 0.6 K/UL (4.8-10.8)
[2017-06-10 06:25] LABS: ALANINE AMINOTRANSFERASE 18 U/L (12-78); ALBUMIN/GLOBULIN RATIO 0.6 (1.0-2.7); ANION GAP 4 mmol/L (5-15); ASPARTATE AMINO TRANSFERASE 19 U/L (15-37); CALCIUM 8.5 MG/DL (8.5-10.1); CARBON DIOXIDE 33 MMOL/L (21-32); CHLORIDE 95 MMOL/L (98-107); CREATININE 1.3 MG/DL (0.55-1.30); MAGNESIUM 1.7 MG/DL (1.8-2.4); PHOSPHORUS 2.5 MG/DL (2.5-4.9); POTASSIUM 3.1 MMOL/L (3.5-5.1); SODIUM 132 MMOL/L (136-145)
[2017-06-10 07:58] LABS: ERYTHROCYTE SEDIMENTATION RATE 36 MM/HR (0-20)
[2017-06-10] MEDS: Heparin 5000 units/ml inj SUBQ SCH ×2 (08:59→20:19)
[2017-06-10 09:24] LABS: BAND NEUTROPHILS % (MANUAL) 0 % (0-8); BASOPHILS % (MANUAL) 0 % (0-2); EOSINOPHILS % (MANUAL) 3 % (0-3); LYMPHOCYTES % (MANUAL) 56 % (20-45); NEUTROPHILS % (MANUAL) 10 % (45-75); PLATELET ESTIMATE DECREASED; PLATELET MORPHOLOGY NORMAL; TOTAL CELLS COUNTED 100
[2017-06-10] MEDS: Morphine Sulfate 2mg/ml Inj IVP PRN ×3 (09:43→23:26)
[2017-06-10] MEDS ORDERED: KCl 10% 40mEq/30ml liquid NG ONE (10:30)
[2017-06-10] MEDS: Vancomycin 1250mg/D5W 250ml 250 ML IVPB SCH (11:44)
[2017-06-10] MEDS: D5NS w/KCl 40mEq 1000ml 1,000 ML IV SCH (11:45)
[2017-06-10] MEDS ORDERED: Sterile Water Irrig 1000ml IRRIG ONE (11:47)
[2017-06-10] MEDS ORDERED: D5 1/2NS 1000ml IV ONE (11:47)
[2017-06-10] MEDS ORDERED: NS 275ml ONE (11:47)
[2017-06-10] MEDS ORDERED: Tubing IV Secondary IV ONE (11:47)
--- NOTE | 2017-06-10 11:53 | Infectious Diseases Prog Note ---
Assessment/Plan Assessment/Plan ASSESSMENT: 76 y/o male with: // Neutropenia / pancytopenia 2/2 antineoplastic chemotherapy, // Low grade fever // Odynophagia / dysphagia r/o helena esophagitis // Laryngeal CA SP chemo # 1 ( 06/02 ) // Near syncope // Dehydration // ROYAL, m/l pre-renal dehydration // Hyponatremia / electrolyte imbalance // Hyperglycemia // Recent LUE PICC ~1week // HTN // NKDA // Full Code PLAN: - continue empiric IV vancomycin, cefepime d# 3 and fluconazole d# 2 - neupogen per heme/onc - f/u cultures - monitor CBC, temperatures - monitor BMP - neutropenic precautions - IVF / nutritional support Subjective Allergies: Coded Allergies: No Known Allergies (Unverified , 06/08/17) Subjective low grade fever Objective Vital Signs Last 24 Hour Vital Signs Date Time Temp Pulse Resp B/P (MAP) Pulse Ox O2 Delivery O2 Flow Rate FiO2 06/10/17 11:44 98.2 84 20 111/63 96 Room Air 06/10/17 09:58 98.1 06/10/17 08:58 113 139/87 06/10/17 08:58 113 139/87 06/10/17 08:32 98.1 113 18 139/87 97 Room Air 06/10/17 04:00 100.8 105 20 146/81 98 Room Air 06/10/17 00:00 97.7 103 18 105/70 97 Room Air 06/09/17 21:14 109 149/89 06/09/17 19:25 97.5 109 20 149/89 97 Room Air 06/09/17 16:00 96.8 98 20 143/73 98 Room Air 06/09/17 12:00 97.0 91 20 135/77 98 Room Air Height (Feet): 5 Height (Inches): 11.00 Weight (Pounds): 165 HEENT: anicteric Respiratory/Chest: no respiratory distress Cardiovascular: regular rhythm Abdomen: non distended Microbiology Date/Time Source Procedure Growth Status 06/08/17 14:55 Blood Blood Culture - Preliminary NO GROWTH AFTER 24 HOURS Resulted 06/08/17 14:55 Blood Blood Culture - Preliminary NO GROWTH AFTER 24 HOURS Resulted Laboratory Tests Test 06/10/17 05:00 White Blood Count 0.6 K/UL (4.8-10.8) *L Red Blood Count 4.43 M/UL (4.70-6.10) L Hemoglobin 13.7 G/DL (14.2-18.0) L Hematocrit 40.7 % (42.0-52.0) L Mean Corpuscular Volume 92 FL (80-99) Mean Corpuscular Hemoglobin 31.0 PG (27.0-31.0) Mean Corpuscular Hemoglobin Concent 33.7 G/DL (32.0-36.0) Red Cell Distribution Width 11.0 % (11.6-14.8) L Platelet Count 80 K/UL (150-450) L Mean Platelet Volume 11.4 FL (6.5-10.1) H Neutrophils (%) (Auto) % (45.0-75.0) Lymphocytes (%) (Auto) % (20.0-45.0) Monocytes (%) (Auto) % (1.0-10.0) Eosinophils (%) (Auto) % (0.0-3.0) Basophils (%) (Auto) % (0.0-2.0) Differential Total Cells Counted 100 Neutrophils % (Manual) 10 % (45-75) L Lymphocytes % (Manual) 56 % (20-45) H Monocytes % (Manual) 31 % (1-10) H Eosinophils % (Manual) 3 % (0-3) Basophils % (Manual) 0 % (0-2) Band Neutrophils 0 % (0-8) Platelet Estimate Decreased L Platelet Morphology Normal Erythrocyte Sedimentation Rate 36 MM/HR (0-20) H Sodium Level 132 MMOL/L (136-145) L Potassium Level 3.1 MMOL/L (3.5-5.1) L Chloride Level 95 MMOL/L (98-107) L Carbon Dioxide Level 33 MMOL/L (21-32) H Anion Gap 4 mmol/L (5-15) L Blood Urea Nitrogen 23 mg/dL (7-18) H Creatinine 1.3 MG/DL (0.55-1.30) Estimat Glomerular Filtration Rate mL/min (>60) Glucose Level 181 MG/DL (74-106) H Calcium Level 8.5 MG/DL (8.5-10.1) Phosphorus Level 2.5 MG/DL (2.5-4.9) Magnesium Level 1.7 MG/DL (1.8-2.4) L Total Bilirubin 0.6 MG/DL (0.2-1.0) Aspartate Amino Transf (AST/SGOT) 19 U/L (15-37) Alanine Aminotransferase (ALT/SGPT) 18 U/L (12-78) Alkaline Phosphatase 34 U/L (46-116) L Total Protein 6.0 G/DL (6.4-8.2) L Albumin 2.2 G/DL (3.4-5.0) L Globulin 3.8 g/dL Albumin/Globulin Ratio 0.6 (1.0-2.7) L Current Medications Medications (Trade) Dose Ordered Sig/Baron Route PRN Reason Start Time Stop Time Status Last Admin Dose Admin Acetaminophen (Tylenol) 650 mg Q4H PRN ORAL T>100.5 06/09/17 14:30 07/08/17 14:29 06/10/17 08:59 Albuterol/ Ipratropium (Albuterol/ Ipratropium) 3 ml Q4H PRN HHN Shortness of Breath 06/09/17 17:45 06/13/17 17:44 Amlodipine Besylate (Norvasc) 10 mg DAILY ORAL 06/10/17 09:00 07/10/17 08:59 06/10/17 08:58 Atenolol (Tenormin) 50 mg Q12HR ORAL 06/10/17 09:00 07/10/17 08:59 06/10/17 08:58 Cefepime HCl 2 gm/ Dextrose 55 ml @ 110 mls/hr Q24H IV 06/09/17 23:00 06/15/17 22:59 06/10/17 00:03 Chlorhexidine Gluconate (Jaclyn-Hex 2%) 1 applic DAILY@2000 TOPIC 06/09/17 20:00 07/09/17 19:59 06/09/17 21:15 Chlorpromazine (Thorazine) 25 mg Q8H PRN IM hiccups 06/09/17 14:30 07/08/17 14:29 Dextrose/ Electrolytes 1,000 ml @ 75 mls/hr [id number] IV 06/10/17 12:00 07/10/17 11:59 06/10/17 11:45 Fluconazole/ Sodium Chloride 100 ml @ 100 mls/hr Q24H IV 06/09/17 15:00 06/16/17 14:59 06/09/17 15:00 Heparin Sodium (Porcine) (Heparin 5000 units/ml) 5,000 units EVERY 12 HOURS SUBQ 06/09/17 21:00 07/09/17 08:59 Morphine Sulfate (Morphine Sulfate) 2 mg Q4H PRN IVP Moderate Pain (Pain Scale 4-6) 06/09/17 14:30 06/15/17 14:29 06/10/17 09:43 Nitroglycerin (Ntg) 0.4 mg Q5MIN X 3 DOSES PRN SL Prn Chest Pain 06/09/17 14:00 07/08/17 17:59 Ondansetron HCl (Zofran) 4 mg Q6H PRN IVP Nausea & Vomiting 06/09/17 14:30 07/08/17 14:29 Polyethylene Glycol (Miralax) 17 gm DAILYPRN PRN ORAL Constipation 06/09/17 14:30 07/08/17 14:29 Prednisone (predniSONE) 20 mg BID ORAL 06/10/17 09:00 07/10/17 08:59 06/10/17 08:58 Tbo-Filgrastim (Granix) 300 mcg QHS SQ 06/09/17 21:00 07/09/17 20:59 06/09/17 21:14 Temazepam (Restoril) 15 mg HSPRN PRN ORAL Insomnia 06/09/17 21:00 06/15/17 20:59 Vancomycin HCl (Vanco rx to dose) 1 ea DAILY PRN MISC . 06/09/17 14:30 07/09/17 14:29 Vancomycin HCl/ Dextrose 250 ml @ 166.667 mls/hr Q24H IVPB 06/10/17 11:00 06/15/17 10:59 06/10/17 11:44 TOMAS LU M.D. Jun 10, 2017 11:53
--- NOTE | 2017-06-10 13:09 | General Progress Note ---
Assessment/Plan Assessment/Plan Assessment - Laryngeal CA - neutropenia - dysphagia - s/p NJT Recommendations - continue TF - follow counts - video swallow Monday Subjective Allergies: Coded Allergies: No Known Allergies (Unverified , 06/08/17) Subjective Feels OK no new complaints tolerating NJT feeds Objective Last 24 Hour Vital Signs Date Time Temp Pulse Resp B/P (MAP) Pulse Ox O2 Delivery O2 Flow Rate FiO2 06/10/17 11:44 98.2 84 20 111/63 96 Room Air 06/10/17 09:58 98.1 06/10/17 08:58 113 139/87 06/10/17 08:58 113 139/87 06/10/17 08:32 98.1 113 18 139/87 97 Room Air 06/10/17 04:00 100.8 105 20 146/81 98 Room Air 06/10/17 00:00 97.7 103 18 105/70 97 Room Air 06/09/17 21:14 109 149/89 06/09/17 19:25 97.5 109 20 149/89 97 Room Air 06/09/17 16:00 96.8 98 20 143/73 98 Room Air Intake and Output 06/10/17 06/11/17 19:00 07:00 Intake Total 505 ml Balance 505 ml Free Water 100 ml IV Total 225 ml Tube Feeding 180 ml Laboratory Tests 06/10/17 05:00: White Blood Count 0.6*L, Red Blood Count 4.43L, Hemoglobin 13.7L, Hematocrit 40.7L, Mean Corpuscular Volume 92, Mean Corpuscular Hemoglobin 31.0, Mean Corpuscular Hemoglobin Concent 33.7, Red Cell Distribution Width 11.0L, Platelet Count 80L, Mean Platelet Volume 11.4H, Neutrophils (%) (Auto) , Lymphocytes (%) (Auto) , Monocytes (%) (Auto) , Eosinophils (%) (Auto) , Basophils (%) (Auto) , Differential Total Cells Counted 100, Neutrophils % ( Manual) 10L, Lymphocytes % (Manual) 56H, Monocytes % (Manual) 31H, Eosinophils % (Manual) 3, Basophils % (Manual) 0, Band Neutrophils 0, Platelet Estimate DecreasedL, Platelet Morphology Normal, Erythrocyte Sedimentation Rate 36H, Sodium Level 132L, Potassium Level 3.1L, Chloride Level 95L, Carbon Dioxide Level 33H, Anion Gap 4L, Blood Urea Nitrogen 23H, Creatinine 1.3, Estimat Glomerular Filtration Rate , Glucose Level 181H, Calcium Level 8.5, Phosphorus Level 2.5, Magnesium Level 1.7L, Total Bilirubin 0.6, Aspartate Amino Transf ( AST/SGOT) 19, Alanine Aminotransferase (ALT/SGPT) 18, Alkaline Phosphatase 34L, Total Protein 6.0L, Albumin 2.2L, Globulin 3.8, Albumin/Globulin Ratio 0.6L Height (Feet): 5 Height (Inches): 11.00 Weight (Pounds): 165 Objective WDWN AA MAN NCAT (+) NJT (+) (R) neck swelling CTA RR soft No edema BRETT RAPHAEL Jun 10, 2017 13:09
--- NOTE | 2017-06-10 13:16 | Pulmonology Progress Note ---
Assessment/Plan Assessment/Plan ASSESMENT Neutropenia severe dehydration resulted in hypovolemia SCC of larynx hx of HTN, currently hypotension ARF, possibly due to dehydration thrombocytopenia dysphagia e/lyte imbalance/( hypo Na, hypo K, hypo Mg) likely protein calorie malnutrition PLAN OF CARE initially on tele, transferred to [place] floor Tele was negative IVF Started on Granix, monitor counts, heme/onco follows Empiric abx, fup cx Swallow eval on Monday for now NGT with TF strict aspiration precautions O2 HHN prn monitor counts venous Duplex BLE if negative then DVT prophylaxis with SCD generous IVF, monitor renal parameters, lytes, replace K and Mg today avoid nephrotoxic Thorazine prn for hiccups dietary eval case discussed and evaluated by supervising physician Subjective Allergies: Coded Allergies: No Known Allergies (Unverified , 06/08/17) Subjective WBC remains low on Granix started on NGT feeding while awaiting for swallow eval afebrile , no signs of respiratory distress Objective Last 24 Hour Vital Signs Date Time Temp Pulse Resp B/P (MAP) Pulse Ox O2 Delivery O2 Flow Rate FiO2 06/10/17 11:44 98.2 84 20 111/63 96 Room Air 06/10/17 09:58 98.1 06/10/17 08:58 113 139/87 06/10/17 08:58 113 139/87 06/10/17 08:32 98.1 113 18 139/87 97 Room Air 06/10/17 04:00 100.8 105 20 146/81 98 Room Air 06/10/17 00:00 97.7 103 18 105/70 97 Room Air 06/09/17 21:14 109 149/89 06/09/17 19:25 97.5 109 20 149/89 97 Room Air 06/09/17 16:00 96.8 98 20 143/73 98 Room Air Intake and Output 06/10/17 06/11/17 19:00 07:00 Intake Total 505 ml Balance 505 ml Free Water 100 ml IV Total 225 ml Tube Feeding 180 ml General Appearance: no acute distress, cachetic HEENT: normocephalic, atraumatic, anicteric, other - NGT with TF Respiratory/Chest: lungs clear, no respiratory distress, no accessory muscle use Cardiovascular: normal peripheral pulses, normal rate - occas tachy, no JVD Abdomen: normal bowel sounds, no organomegaly Extremities: no edema, pedal pulses normal Neurologic/Psychiatric: no motor/sensory deficits, alert, oriented x 3, responsive Musculoskeletal: atrophy Microbiology Date/Time Source Procedure Growth Status 06/08/17 14:55 Blood Blood Culture - Preliminary NO GROWTH AFTER 24 HOURS Resulted 06/08/17 14:55 Blood Blood Culture - Preliminary NO GROWTH AFTER 24 HOURS Resulted Laboratory Tests 06/10/17 05:00: White Blood Count 0.6*L, Red Blood Count 4.43L, Hemoglobin 13.7L, Hematocrit 40.7L, Mean Corpuscular Volume 92, Mean Corpuscular Hemoglobin 31.0, Mean Corpuscular Hemoglobin Concent 33.7, Red Cell Distribution Width 11.0L, Platelet Count 80L, Mean Platelet Volume 11.4H, Neutrophils (%) (Auto) , Lymphocytes (%) (Auto) , Monocytes (%) (Auto) , Eosinophils (%) (Auto) , Basophils (%) (Auto) , Differential Total Cells Counted 100, Neutrophils % ( Manual) 10L, Lymphocytes % (Manual) 56H, Monocytes % (Manual) 31H, Eosinophils % (Manual) 3, Basophils % (Manual) 0, Band Neutrophils 0, Platelet Estimate DecreasedL, Platelet Morphology Normal, Erythrocyte Sedimentation Rate 36H, Sodium Level 132L, Potassium Level 3.1L, Chloride Level 95L, Carbon Dioxide Level 33H, Anion Gap 4L, Blood Urea Nitrogen 23H, Creatinine 1.3, Estimat Glomerular Filtration Rate , Glucose Level 181H, Calcium Level 8.5, Phosphorus Level 2.5, Magnesium Level 1.7L, Total Bilirubin 0.6, Aspartate Amino Transf ( AST/SGOT) 19, Alanine Aminotransferase (ALT/SGPT) 18, Alkaline Phosphatase 34L, Total Protein 6.0L, Albumin 2.2L, Globulin 3.8, Albumin/Globulin Ratio 0.6L Current Medications Medications (Trade) Dose Ordered Sig/Baron Route PRN Reason Start Time Stop Time Status Last Admin Dose Admin Acetaminophen (Tylenol) 650 mg Q4H PRN ORAL T>100.5 06/09/17 14:30 07/08/17 14:29 06/10/17 08:59 Albuterol/ Ipratropium (Albuterol/ Ipratropium) 3 ml Q4H PRN HHN Shortness of Breath 06/09/17 17:45 06/13/17 17:44 Amlodipine Besylate (Norvasc) 10 mg DAILY ORAL 06/10/17 09:00 07/10/17 08:59 06/10/17 08:58 Atenolol (Tenormin) 50 mg Q12HR ORAL 06/10/17 09:00 07/10/17 08:59 06/10/17 08:58 Cefepime HCl 2 gm/ Dextrose 55 ml @ 110 mls/hr Q24H IV 06/09/17 23:00 06/15/17 22:59 06/10/17 00:03 Chlorhexidine Gluconate (Jaclyn-Hex 2%) 1 applic DAILY@2000 TOPIC 06/09/17 20:00 07/09/17 19:59 06/09/17 21:15 Chlorpromazine (Thorazine) 25 mg Q8H PRN IM hiccups 06/09/17 14:30 07/08/17 14:29 Dextrose/ Electrolytes 1,000 ml @ 75 mls/hr [id number] IV 06/10/17 12:00 07/10/17 11:59 06/10/17 11:45 Fluconazole/ Sodium Chloride 100 ml @ 100 mls/hr Q24H IV 06/09/17 15:00 06/16/17 14:59 06/09/17 15:00 Heparin Sodium (Porcine) (Heparin 5000 units/ml) 5,000 units EVERY 12 HOURS SUBQ 06/09/17 21:00 07/09/17 08:59 Morphine Sulfate (Morphine Sulfate) 2 mg Q4H PRN IVP Moderate Pain (Pain Scale 4-6) 06/09/17 14:30 06/15/17 14:29 06/10/17 09:43 Nitroglycerin (Ntg) 0.4 mg Q5MIN X 3 DOSES PRN SL Prn Chest Pain 06/09/17 14:00 07/08/17 17:59 Ondansetron HCl (Zofran) 4 mg Q6H PRN IVP Nausea & Vomiting 06/09/17 14:30 07/08/17 14:29 Polyethylene Glycol (Miralax) 17 gm DAILYPRN PRN ORAL Constipation 06/09/17 14:30 07/08/17 14:29 Prednisone (predniSONE) 20 mg BID ORAL 06/10/17 09:00 07/10/17 08:59 06/10/17 08:58 Tbo-Filgrastim (Granix) 300 mcg QHS SQ 06/09/17 21:00 07/09/17 20:59 06/09/17 21:14 Temazepam (Restoril) 15 mg HSPRN PRN ORAL Insomnia 06/09/17 21:00 06/15/17 20:59 Vancomycin HCl (Vanco rx to dose) 1 ea DAILY PRN MISC . 06/09/17 14:30 07/09/17 14:29 Vancomycin HCl/ Dextrose 250 ml @ 166.667 mls/hr Q24H IVPB 06/10/17 11:00 06/15/17 10:59 06/10/17 11:44 Freddie (Macy Bautista NP Jun 10, 2017 13:16
--- NOTE | 2017-06-10 15:12 | Internal Med Progress Note ---
Subjective Physician Name Joseph March Attending Physician Joseph March MD Current Medications Medications (Trade) Dose Ordered Sig/Baron Route PRN Reason Start Time Stop Time Status Last Admin Dose Admin Acetaminophen (Tylenol) 650 mg Q4H PRN ORAL T>100.5 06/09/17 14:30 07/08/17 14:29 06/10/17 08:59 Albuterol/ Ipratropium (Albuterol/ Ipratropium) 3 ml Q4H PRN HHN Shortness of Breath 06/09/17 17:45 06/13/17 17:44 Amlodipine Besylate (Norvasc) 10 mg DAILY ORAL 06/10/17 09:00 07/10/17 08:59 06/10/17 08:58 Atenolol (Tenormin) 50 mg Q12HR ORAL 06/10/17 09:00 07/10/17 08:59 06/10/17 08:58 Cefepime HCl 2 gm/ Dextrose 55 ml @ 110 mls/hr Q24H IV 06/09/17 23:00 06/15/17 22:59 06/10/17 00:03 Chlorhexidine Gluconate (Jaclyn-Hex 2%) 1 applic DAILY@2000 TOPIC 06/09/17 20:00 07/09/17 19:59 06/09/17 21:15 Chlorpromazine (Thorazine) 25 mg Q8H PRN IM hiccups 06/09/17 14:30 07/08/17 14:29 Dextrose/ Electrolytes 1,000 ml @ 75 mls/hr [id number] IV 06/10/17 12:00 07/10/17 11:59 06/10/17 11:45 Fluconazole/ Sodium Chloride 100 ml @ 100 mls/hr Q24H IV 06/09/17 15:00 06/16/17 14:59 06/09/17 15:00 Heparin Sodium (Porcine) (Heparin 5000 units/ml) 5,000 units EVERY 12 HOURS SUBQ 06/09/17 21:00 07/09/17 08:59 Morphine Sulfate (Morphine Sulfate) 2 mg Q4H PRN IVP Moderate Pain (Pain Scale 4-6) 06/09/17 14:30 06/15/17 14:29 06/10/17 13:58 Nitroglycerin (Ntg) 0.4 mg Q5MIN X 3 DOSES PRN SL Prn Chest Pain 06/09/17 14:00 07/08/17 17:59 Ondansetron HCl (Zofran) 4 mg Q6H PRN IVP Nausea & Vomiting 06/09/17 14:30 07/08/17 14:29 Polyethylene Glycol (Miralax) 17 gm DAILYPRN PRN ORAL Constipation 06/09/17 14:30 07/08/17 14:29 Prednisone (predniSONE) 20 mg BID ORAL 06/10/17 09:00 07/10/17 08:59 06/10/17 08:58 Tbo-Filgrastim (Granix) 300 mcg QHS SQ 06/09/17 21:00 07/09/17 20:59 06/09/17 21:14 Temazepam (Restoril) 15 mg HSPRN PRN ORAL Insomnia 06/09/17 21:00 06/15/17 20:59 Vancomycin HCl (Vanco rx to dose) 1 ea DAILY PRN MISC . 06/09/17 14:30 07/09/17 14:29 Vancomycin HCl/ Dextrose 250 ml @ 166.667 mls/hr Q24H IVPB 06/10/17 11:00 06/15/17 10:59 06/10/17 11:44 Allergies: Coded Allergies: No Known Allergies (Unverified , 06/08/17) Subjective awake, alert, responsive,No hiccups, No CP or SOB. WBC 0.6 Objective Last Vital Signs Date Time Temp Pulse Resp B/P (MAP) Pulse Ox O2 Delivery O2 Flow Rate FiO2 06/10/17 11:44 98.2 84 20 111/63 96 Room Air Laboratory Tests Test 06/10/17 05:00 White Blood Count 0.6 K/UL (4.8-10.8) *L Red Blood Count 4.43 M/UL (4.70-6.10) L Hemoglobin 13.7 G/DL (14.2-18.0) L Hematocrit 40.7 % (42.0-52.0) L Mean Corpuscular Volume 92 FL (80-99) Mean Corpuscular Hemoglobin 31.0 PG (27.0-31.0) Mean Corpuscular Hemoglobin Concent 33.7 G/DL (32.0-36.0) Red Cell Distribution Width 11.0 % (11.6-14.8) L Platelet Count 80 K/UL (150-450) L Mean Platelet Volume 11.4 FL (6.5-10.1) H Neutrophils (%) (Auto) % (45.0-75.0) Lymphocytes (%) (Auto) % (20.0-45.0) Monocytes (%) (Auto) % (1.0-10.0) Eosinophils (%) (Auto) % (0.0-3.0) Basophils (%) (Auto) % (0.0-2.0) Differential Total Cells Counted 100 Neutrophils % (Manual) 10 % (45-75) L Lymphocytes % (Manual) 56 % (20-45) H Monocytes % (Manual) 31 % (1-10) H Eosinophils % (Manual) 3 % (0-3) Basophils % (Manual) 0 % (0-2) Band Neutrophils 0 % (0-8) Platelet Estimate Decreased L Platelet Morphology Normal Erythrocyte Sedimentation Rate 36 MM/HR (0-20) H Sodium Level 132 MMOL/L (136-145) L Potassium Level 3.1 MMOL/L (3.5-5.1) L Chloride Level 95 MMOL/L (98-107) L Carbon Dioxide Level 33 MMOL/L (21-32) H Anion Gap 4 mmol/L (5-15) L Blood Urea Nitrogen 23 mg/dL (7-18) H Creatinine 1.3 MG/DL (0.55-1.30) Estimat Glomerular Filtration Rate mL/min (>60) Glucose Level 181 MG/DL (74-106) H Calcium Level 8.5 MG/DL (8.5-10.1) Phosphorus Level 2.5 MG/DL (2.5-4.9) Magnesium Level 1.7 MG/DL (1.8-2.4) L Total Bilirubin 0.6 MG/DL (0.2-1.0) Aspartate Amino Transf (AST/SGOT) 19 U/L (15-37) Alanine Aminotransferase (ALT/SGPT) 18 U/L (12-78) Alkaline Phosphatase 34 U/L (46-116) L Total Protein 6.0 G/DL (6.4-8.2) L Albumin 2.2 G/DL (3.4-5.0) L Globulin 3.8 g/dL Albumin/Globulin Ratio 0.6 (1.0-2.7) L Microbiology Date/Time Source Procedure Growth Status 06/08/17 14:55 Blood Blood Culture - Preliminary NO GROWTH AFTER 24 HOURS Resulted 06/08/17 14:55 Blood Blood Culture - Preliminary NO GROWTH AFTER 24 HOURS Resulted Intake and Output 06/10/17 06/11/17 19:00 07:00 Intake Total 1048.334 ml Balance 1048.334 ml Free Water 130 ml IV Total 558.334 ml Tube Feeding 360 ml Objective GENERAL: The patient awake, responsive, in no acute distress. HEAD AND NECK: Pupils equal and reactive to light. Anicteric. + NG Tube. NECK: Supple. Right side mass, No JVD. LUNGS: Good air entry. No wheezing or rales. Decreased air in the bases. Poor inspiratory effort. HEART: S1 and S2. Regular rhythm. No gallops. ABDOMEN: Soft, nondistended, and nontender. Positive bowel sounds. EXTREMITIES: No cyanosis, clubbing, or edema. LUE piccline. NEUROLOGIC: Cranial nerves II through XII grossly unremarkable. Motor is 5/5 in all extremities. Gait unsteady. PSYCHIATRIC: Mood is depressed. Assessment/Plan Assessment/Plan ASSESSMENT: 1. Neutropenic / Pancytopenia most likely chemotherapy induced. 2. Severe dehydration and hypovolemia. 3. History of locally advanced laryngeal squamous cell carcinoma. 4. History of hypertension, presently hypotensive. 5. Dysphagia s/p NG tube placement. 6. Hypokalemia. 7. Hypomagnesemia PLAN: DC telemetry. AM laboratory. Tube feeding@ 60 cc/hr. Code status, Full Code. Consider PEG placement. Thorazine for hiccups PRN Code status: Full Code. DVT prophylaxis with SCD. Abx: Vanco / Cefepime On Gronix injection Mg IV, Kcl supplements IVF Joseph March MD Jun 10, 2017 15:12
[2017-06-10] MEDS: Dyna-Hex 2% Top Sol 2oz TOPIC SCH (20:18)
[2017-06-10] MEDS: TBO-Filgrastim 300 mcg/0.5ml SQ SCH (20:19)
--- NOTE | 2017-06-10 21:59 | General Progress Note ---
Assessment/Plan Assessment/Plan ASSESSMENT AND PLAN: 1. Laryngeal carcinoma, squamous cell, on cisplatinum, Taxotere, prednisone, and 5-fluorouracil. 2. Neutropenia history. He is receiving tbo filgastrim. 3. Lactic acidosis, slightly elevated lactic acid. 4. Dehydration, likely secondary to recent administration of chemotherapy. 5. Hypertension, currently well controlled Subjective Allergies: Coded Allergies: No Known Allergies (Unverified , 06/08/17) All Systems: reviewed and negative except above Subjective afebrile, wbc count remains low Objective Last 24 Hour Vital Signs Date Time Temp Pulse Resp B/P (MAP) Pulse Ox O2 Delivery O2 Flow Rate FiO2 06/10/17 20:19 96 142/90 06/10/17 19:31 97.7 96 20 142/90 98 Room Air 06/10/17 16:00 98.2 82 20 137/68 96 Room Air 06/10/17 14:28 98.2 06/10/17 11:44 98.2 84 20 111/63 96 Room Air 06/10/17 09:58 98.1 06/10/17 08:58 113 139/87 06/10/17 08:58 113 139/87 06/10/17 08:32 98.1 113 18 139/87 97 Room Air 06/10/17 04:00 100.8 105 20 146/81 98 Room Air 06/10/17 00:00 97.7 103 18 105/70 97 Room Air Intake and Output 06/10/17 06/11/17 19:00 07:00 Intake Total 1548.334 ml Balance 1548.334 ml Free Water 230 ml IV Total 658.334 ml Tube Feeding 660 ml # Voids 3 Laboratory Tests 06/10/17 05:00: White Blood Count 0.6*L, Red Blood Count 4.43L, Hemoglobin 13.7L, Hematocrit 40.7L, Mean Corpuscular Volume 92, Mean Corpuscular Hemoglobin 31.0, Mean Corpuscular Hemoglobin Concent 33.7, Red Cell Distribution Width 11.0L, Platelet Count 80L, Mean Platelet Volume 11.4H, Neutrophils (%) (Auto) , Lymphocytes (%) (Auto) , Monocytes (%) (Auto) , Eosinophils (%) (Auto) , Basophils (%) (Auto) , Differential Total Cells Counted 100, Neutrophils % ( Manual) 10L, Lymphocytes % (Manual) 56H, Monocytes % (Manual) 31H, Eosinophils % (Manual) 3, Basophils % (Manual) 0, Band Neutrophils 0, Platelet Estimate DecreasedL, Platelet Morphology Normal, Erythrocyte Sedimentation Rate 36H, Sodium Level 132L, Potassium Level 3.1L, Chloride Level 95L, Carbon Dioxide Level 33H, Anion Gap 4L, Blood Urea Nitrogen 23H, Creatinine 1.3, Estimat Glomerular Filtration Rate , Glucose Level 181H, Calcium Level 8.5, Phosphorus Level 2.5, Magnesium Level 1.7L, Total Bilirubin 0.6, Aspartate Amino Transf ( AST/SGOT) 19, Alanine Aminotransferase (ALT/SGPT) 18, Alkaline Phosphatase 34L, Total Protein 6.0L, Albumin 2.2L, Globulin 3.8, Albumin/Globulin Ratio 0.6L Height (Feet): 5 Height (Inches): 11.00 Weight (Pounds): 165 General Appearance: no apparent distress EENT: normal ENT inspection Neck: normal alignment Cardiovascular: normal peripheral pulses Respiratory/Chest: decreased breath sounds Abdomen: normal bowel sounds Extremities: non-tender 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
[2017-06-11] MEDS: D5NS w/KCl 40mEq 1000ml 1,000 ML IV SCH ×3 (01:20→17:01)
[2017-06-11 04:00] VITALS: BP 152/82
[2017-06-11] MEDS: Morphine Sulfate 2mg/ml Inj IVP PRN ×4 (06:15→23:13)
[2017-06-11] MEDS: Miralax 17gm pkt ORAL PRN (06:44)
[2017-06-11 07:40] LABS: ANION GAP 4 mmol/L (5-15); CALCIUM 8.5 MG/DL (8.5-10.1); CARBON DIOXIDE 31 MMOL/L (21-32); CHLORIDE 98 MMOL/L (98-107); CREATININE 1.2 MG/DL (0.55-1.30); MAGNESIUM 1.4 MG/DL (1.8-2.4); POTASSIUM 3.8 MMOL/L (3.5-5.1); SODIUM 133 MMOL/L (136-145)
[2017-06-11 07:49] LABS: MEAN CORPUSCULAR HEMOGLOBIN 31.2 PG (27.0-31.0); MEAN CORPUSCULAR HGB CONC 33.6 G/DL (32.0-36.0); MEAN CORPUSCULAR VOLUME 93 FL (80-99); MEAN PLATELET VOLUME 10.6 FL (6.5-10.1); PLATELET COUNT 81 K/UL (150-450); RED CELL DISTRIBUTION WIDTH 11.4 % (11.6-14.8); WHITE BLOOD COUNT 2.1 K/UL (4.8-10.8)
[2017-06-11 08:00] VITALS: BP 135/75
[2017-06-11] MEDS: Heparin 5000 units/ml inj SUBQ SCH ×2 (08:23→20:35)
[2017-06-11 10:25] LABS: BAND NEUTROPHILS % (MANUAL) 14 % (0-8); BASOPHILS % (MANUAL) 0 % (0-2); EOSINOPHILS % (MANUAL) 0 % (0-3); LYMPHOCYTES % (MANUAL) 48 % (20-45); NEUTROPHILS % (MANUAL) 9 % (45-75); PLATELET ESTIMATE DECREASED; PLATELET MORPHOLOGY NORMAL; TOTAL CELLS COUNTED 100
[2017-06-11] MEDS ORDERED: Sterile Water Irrig 1000ml IRRIG ONE (10:26)
[2017-06-11] MEDS ORDERED: Tubing IV Secondary IV ONE (10:26)
[2017-06-11 12:00] VITALS: BP 146/87
[2017-06-11] MEDS: Vancomycin 1250mg/D5W 250ml 250 ML IVPB SCH (12:08)
--- NOTE | 2017-06-11 12:13 | General Progress Note ---
Assessment/Plan Assessment/Plan Assessment - Laryngeal CA - neutropenia - dysphagia - s/p NJT Recommendations - continue TF - follow counts - video swallow Monday - If passes, will need calorie count Subjective Allergies: Coded Allergies: No Known Allergies (Unverified , 06/08/17) Subjective Feels OK no new complaints NJT feeds reduced to to feeling of fullness / regurgitation Objective Last 24 Hour Vital Signs Date Time Temp Pulse Resp B/P (MAP) Pulse Ox O2 Delivery O2 Flow Rate FiO2 06/11/17 08:23 87 135/75 06/11/17 08:23 87 135/75 06/11/17 08:00 97.5 87 19 135/75 98 Room Air 06/11/17 07:30 84 18 Room Air 06/11/17 04:00 98.2 90 18 152/82 97 Room Air 06/10/17 23:37 96.6 93 20 133/76 96 Room Air 06/10/17 20:19 96 142/90 06/10/17 19:31 97.7 96 20 142/90 98 Room Air 06/10/17 16:00 98.2 82 20 137/68 96 Room Air 06/10/17 14:28 98.2 Intake and Output 06/11/17 06/12/17 19:00 07:00 Intake Total 280 ml Balance 280 ml Free Water 40 ml IV Total 150 ml Tube Feeding 90 ml Laboratory Tests 06/11/17 06:00: White Blood Count 2.1#*L, Red Blood Count 4.30L, Hemoglobin 13.5L, Hematocrit 40.0L, Mean Corpuscular Volume 93, Mean Corpuscular Hemoglobin 31.2H, Mean Corpuscular Hemoglobin Concent 33.6, Red Cell Distribution Width 11.4L, Platelet Count 81L, Mean Platelet Volume 10.6H, Neutrophils (%) (Auto) , Lymphocytes (%) (Auto) , Monocytes (%) (Auto) , Eosinophils (%) (Auto) , Basophils (%) (Auto) , Differential Total Cells Counted 100, Neutrophils % ( Manual) 9L, Lymphocytes % (Manual) 48H, Monocytes % (Manual) 29H, Eosinophils % (Manual) 0, Basophils % (Manual) 0, Band Neutrophils 14H, Platelet Estimate DecreasedL, Platelet Morphology Normal, Red Blood Cell Morphology Normal, Sodium Level 133L, Potassium Level 3.8, Chloride Level 98, Carbon Dioxide Level 31, Anion Gap 4L, Blood Urea Nitrogen 24H, Creatinine 1.2, Estimat Glomerular Filtration Rate , Glucose Level 180H, Calcium Level 8.5, Magnesium Level 1.4L Height (Feet): 5 Height (Inches): 11.00 Weight (Pounds): 165 Objective WDWN AA MAN NCAT (+) NJT (+) (R) neck swelling CTA RR soft No edema BRETT RAPHAEL Jun 11, 2017 12:13
--- NOTE | 2017-06-11 12:35 | Cardiology Report ---
APPROVED REPORT EXAM: Two-dimensional and M-mode echocardiogram with Doppler and color Doppler. INDICATION Left ventricular function M-Mode DIMENSIONS IVSd1.1 (0.7-1.1cm)Left Atrium (MM)2.6 (1.6-4.0cm) LVDd4.9 (3.5-5.6cm)Aortic Root3.5 (2.0-3.7cm) PWd1.0 (0.7-1.1cm)Aortic Cusp Exc.1.7 (1.5-2.0cm) LVDs2.5 (2.5-4.0cm) PWs1.6 cm Technically difficult study due to poor acoustical windows. Normal left ventricular chamber size, systolic function and wall motion. Left ventricular ejection fraction estimated to be 60-65%. No evidence of left ventricular hypertrophy. No evidence of pericardial or pleural effusion. All other cardiac chamber sizes are within normal limits. Focal aortic valve sclerosis with adequate cusp excursion. Thickened mitral valve leaflets with normal excursion. Mild mitral annulus and aortic root calcification. Pulmonic valve not well visualized. Normal tricuspid valve structure. IVC is not obtainable. A color flow and spectral Doppler study was performed and revealed: No aortic regurgitation. No mitral regurgitation. Mitral diastolic velocities suggest reduced left ventricular relaxation c/w diastolic dysfunction grade 1. No tricuspid regurgitation.
--- NOTE | 2017-06-11 13:03 | Pulmonology Progress Note ---
Assessment/Plan Assessment/Plan ASSESSMENT Neutropenia severe dehydration resulted in hypovolemia SCC of larynx hx of HTN, currently hypotension ARF, possibly due to dehydration thrombocytopenia dysphagia e/lyte imbalance/( hypo Na, hypo K, hypo Mg) likely protein calorie malnutrition PLAN OF CARE initially on tele, transferred to [place] floor Tele was negative IVF Started on Granix, monitor counts, heme/onco follows Empiric abx, blood cx preliminary negative Swallow eval tomorrow for now NGT with TF strict aspiration precautions O2 HHN prn monitor counts venous Duplex BLE if negative then DVT prophylaxis with SCD generous IVF, monitor renal parameters, lytes, replace Mg avoid nephrotoxic Thorazine prn for hiccups dietary eval case discussed and evaluated by supervising physician Subjective Allergies: Coded Allergies: No Known Allergies (Unverified , 06/08/17) Subjective WBC up to 2.1 on Granix on NGT feeding while awaiting for swallow eval afebrile no signs of respiratory distress Mg-1.4 Objective Last 24 Hour Vital Signs Date Time Temp Pulse Resp B/P (MAP) Pulse Ox O2 Delivery O2 Flow Rate FiO2 06/11/17 12:00 97.8 94 19 146/87 97 Room Air 06/11/17 08:23 87 135/75 06/11/17 08:23 87 135/75 06/11/17 08:00 97.5 87 19 135/75 98 Room Air 06/11/17 07:30 84 18 Room Air 06/11/17 04:00 98.2 90 18 152/82 97 Room Air 06/10/17 23:37 96.6 93 20 133/76 96 Room Air 06/10/17 20:19 96 142/90 06/10/17 19:31 97.7 96 20 142/90 98 Room Air 06/10/17 16:00 98.2 82 20 137/68 96 Room Air 06/10/17 14:28 98.2 Intake and Output 06/11/17 06/12/17 19:00 07:00 Intake Total 455 ml Balance 455 ml Free Water 40 ml IV Total 325 ml Tube Feeding 90 ml Objective General Appearance: no acute distress, cachetic HEENT: normocephalic, atraumatic, anicteric, other - NGT with TF Respiratory/Chest: lungs clear, no respiratory distress, no accessory muscle use Cardiovascular: normal peripheral pulses, normal rate - occas tachy, no JVD Abdomen: normal bowel sounds, no organomegaly Extremities: no edema, pedal pulses normal Neurologic/Psychiatric: no motor/sensory deficits, alert, oriented x 3, responsive Musculoskeletal: atrophy Microbiology Date/Time Source Procedure Growth Status 06/08/17 14:55 Blood Blood Culture - Preliminary NO GROWTH AFTER 48 HOURS Resulted 06/08/17 14:55 Blood Blood Culture - Preliminary NO GROWTH AFTER 48 HOURS Resulted Laboratory Tests 06/11/17 06:00: White Blood Count 2.1#*L, Red Blood Count 4.30L, Hemoglobin 13.5L, Hematocrit 40.0L, Mean Corpuscular Volume 93, Mean Corpuscular Hemoglobin 31.2H, Mean Corpuscular Hemoglobin Concent 33.6, Red Cell Distribution Width 11.4L, Platelet Count 81L, Mean Platelet Volume 10.6H, Neutrophils (%) (Auto) , Lymphocytes (%) (Auto) , Monocytes (%) (Auto) , Eosinophils (%) (Auto) , Basophils (%) (Auto) , Differential Total Cells Counted 100, Neutrophils % ( Manual) 9L, Lymphocytes % (Manual) 48H, Monocytes % (Manual) 29H, Eosinophils % (Manual) 0, Basophils % (Manual) 0, Band Neutrophils 14H, Platelet Estimate DecreasedL, Platelet Morphology Normal, Red Blood Cell Morphology Normal, Sodium Level 133L, Potassium Level 3.8, Chloride Level 98, Carbon Dioxide Level 31, Anion Gap 4L, Blood Urea Nitrogen 24H, Creatinine 1.2, Estimat Glomerular Filtration Rate , Glucose Level 180H, Calcium Level 8.5, Magnesium Level 1.4L Current Medications Medications (Trade) Dose Ordered Sig/Baron Route PRN Reason Start Time Stop Time Status Last Admin Dose Admin Acetaminophen (Tylenol) 650 mg Q4H PRN ORAL T>100.5 06/09/17 14:30 07/08/17 14:29 06/10/17 08:59 Albuterol/ Ipratropium (Albuterol/ Ipratropium) 3 ml Q4H PRN HHN Shortness of Breath 06/09/17 17:45 06/13/17 17:44 Amlodipine Besylate (Norvasc) 10 mg DAILY ORAL 06/10/17 09:00 07/10/17 08:59 06/11/17 08:23 Atenolol (Tenormin) 50 mg Q12HR ORAL 06/10/17 09:00 07/10/17 08:59 06/11/17 08:23 Cefepime HCl 2 gm/ Dextrose 55 ml @ 110 mls/hr Q24H IV 06/09/17 23:00 06/15/17 22:59 06/10/17 22:51 Chlorhexidine Gluconate (Jaclyn-Hex 2%) 1 applic DAILY@2000 TOPIC 06/09/17 20:00 07/09/17 19:59 06/10/17 20:18 Chlorpromazine (Thorazine) 25 mg Q8H PRN IM hiccups 06/09/17 14:30 07/08/17 14:29 Dextrose/ Electrolytes 1,000 ml @ 75 mls/hr [id number] IV 06/10/17 12:00 07/10/17 11:59 06/11/17 03:38 Fluconazole/ Sodium Chloride 100 ml @ 100 mls/hr Q24H IV 06/09/17 15:00 06/16/17 14:59 06/10/17 15:39 Heparin Sodium (Porcine) (Heparin 5000 units/ml) 5,000 units EVERY 12 HOURS SUBQ 06/09/17 21:00 07/09/17 08:59 Morphine Sulfate (Morphine Sulfate) 2 mg Q4H PRN IVP Moderate Pain (Pain Scale 4-6) 06/09/17 14:30 06/15/17 14:29 06/11/17 06:15 Nitroglycerin (Ntg) 0.4 mg Q5MIN X 3 DOSES PRN SL Prn Chest Pain 06/09/17 14:00 07/08/17 17:59 Ondansetron HCl (Zofran) 4 mg Q6H PRN IVP Nausea & Vomiting 06/09/17 14:30 07/08/17 14:29 Polyethylene Glycol (Miralax) 17 gm DAILYPRN PRN ORAL Constipation 06/09/17 14:30 07/08/17 14:29 06/11/17 06:44 Prednisone (predniSONE) 20 mg BID ORAL 06/10/17 09:00 07/10/17 08:59 06/11/17 08:23 Tbo-Filgrastim (Granix) 300 mcg QHS SQ 06/09/17 21:00 07/09/17 20:59 11/18/17 20:19 Temazepam (Restoril) 15 mg HSPRN PRN ORAL Insomnia 06/09/17 21:00 06/15/17 20:59 Vancomycin HCl (Vanco rx to dose) 1 ea DAILY PRN MISC . 06/09/17 14:30 07/09/17 14:29 Vancomycin HCl/ Dextrose 250 ml @ 166.667 mls/hr Q24H IVPB 06/10/17 11:00 06/15/17 10:59 06/11/17 12:08 Freddie (Allison)Macy NP Jun 11, 2017 13:03
[2017-06-11] MEDS ORDERED: Albuterol/Ipratropium 3ml neb HHN PRN (13:45)
--- NOTE | 2017-06-11 15:16 | Internal Med Progress Note ---
Subjective Physician Name Joseph March Attending Physician Joseph March MD Current Medications Medications (Trade) Dose Ordered Sig/Baron Route PRN Reason Start Time Stop Time Status Last Admin Dose Admin Acetaminophen (Tylenol) 650 mg Q4H PRN ORAL T>100.5 06/09/17 14:30 07/08/17 14:29 06/10/17 08:59 Albuterol/ Ipratropium (Albuterol/ Ipratropium) 3 ml Q4H PRN HHN Shortness of Breath 06/11/17 13:45 06/15/17 13:44 Amlodipine Besylate (Norvasc) 10 mg DAILY ORAL 06/10/17 09:00 07/10/17 08:59 06/11/17 08:23 Atenolol (Tenormin) 50 mg Q12HR ORAL 06/10/17 09:00 07/10/17 08:59 06/11/17 08:23 Cefepime HCl 2 gm/ Dextrose 55 ml @ 110 mls/hr Q24H IV 06/09/17 23:00 06/15/17 22:59 06/10/17 22:51 Chlorhexidine Gluconate (Jaclyn-Hex 2%) 1 applic DAILY@2000 TOPIC 06/09/17 20:00 07/09/17 19:59 06/10/17 20:18 Chlorpromazine (Thorazine) 25 mg Q8H PRN IM hiccups 06/09/17 14:30 07/08/17 14:29 Dextrose/ Electrolytes 1,000 ml @ 75 mls/hr [id number] IV 06/10/17 12:00 07/10/17 11:59 06/11/17 03:38 Fluconazole/ Sodium Chloride 100 ml @ 100 mls/hr Q24H IV 06/09/17 15:00 06/16/17 14:59 06/11/17 14:43 Heparin Sodium (Porcine) (Heparin 5000 units/ml) 5,000 units EVERY 12 HOURS SUBQ 06/09/17 21:00 07/09/17 08:59 Morphine Sulfate (Morphine Sulfate) 2 mg Q4H PRN IVP Moderate Pain (Pain Scale 4-6) 06/09/17 14:30 06/15/17 14:29 06/11/17 13:49 Nitroglycerin (Ntg) 0.4 mg Q5MIN X 3 DOSES PRN SL Prn Chest Pain 06/09/17 14:00 07/08/17 17:59 Ondansetron HCl (Zofran) 4 mg Q6H PRN IVP Nausea & Vomiting 06/09/17 14:30 07/08/17 14:29 Polyethylene Glycol (Miralax) 17 gm DAILYPRN PRN ORAL Constipation 06/09/17 14:30 07/08/17 14:29 06/11/17 06:44 Prednisone (predniSONE) 20 mg BID ORAL 06/10/17 09:00 07/10/17 08:59 06/11/17 08:23 Tbo-Filgrastim (Granix) 300 mcg QHS SQ 06/09/17 21:00 07/09/17 20:59 06/10/17 20:19 Temazepam (Restoril) 15 mg HSPRN PRN ORAL Insomnia 06/09/17 21:00 06/15/17 20:59 Vancomycin HCl (Vanco rx to dose) 1 ea DAILY PRN MISC . 06/09/17 14:30 07/09/17 14:29 Vancomycin HCl/ Dextrose 250 ml @ 166.667 mls/hr Q24H IVPB 06/10/17 11:00 06/15/17 10:59 06/11/17 12:08 Allergies: Coded Allergies: No Known Allergies (Unverified , 06/08/17) Subjective awake, alert, responsive,feeling better, some cough, No CP or SOB. WBC 2.1 Objective Last Vital Signs Date Time Temp Pulse Resp B/P (MAP) Pulse Ox O2 Delivery O2 Flow Rate FiO2 06/11/17 12:00 97.8 94 19 146/87 97 Room Air Laboratory Tests Test 06/11/17 06:00 White Blood Count 2.1 K/UL (4.8-10.8) #*L Red Blood Count 4.30 M/UL (4.70-6.10) L Hemoglobin 13.5 G/DL (14.2-18.0) L Hematocrit 40.0 % (42.0-52.0) L Mean Corpuscular Volume 93 FL (80-99) Mean Corpuscular Hemoglobin 31.2 PG (27.0-31.0) H Mean Corpuscular Hemoglobin Concent 33.6 G/DL (32.0-36.0) Red Cell Distribution Width 11.4 % (11.6-14.8) L Platelet Count 81 K/UL (150-450) L Mean Platelet Volume 10.6 FL (6.5-10.1) H Neutrophils (%) (Auto) % (45.0-75.0) Lymphocytes (%) (Auto) % (20.0-45.0) Monocytes (%) (Auto) % (1.0-10.0) Eosinophils (%) (Auto) % (0.0-3.0) Basophils (%) (Auto) % (0.0-2.0) Differential Total Cells Counted 100 Neutrophils % (Manual) 9 % (45-75) L Lymphocytes % (Manual) 48 % (20-45) H Monocytes % (Manual) 29 % (1-10) H Eosinophils % (Manual) 0 % (0-3) Basophils % (Manual) 0 % (0-2) Band Neutrophils 14 % (0-8) H Platelet Estimate Decreased L Platelet Morphology Normal Red Blood Cell Morphology Normal Sodium Level 133 MMOL/L (136-145) L Potassium Level 3.8 MMOL/L (3.5-5.1) Chloride Level 98 MMOL/L (98-107) Carbon Dioxide Level 31 MMOL/L (21-32) Anion Gap 4 mmol/L (5-15) L Blood Urea Nitrogen 24 mg/dL (7-18) H Creatinine 1.2 MG/DL (0.55-1.30) Estimat Glomerular Filtration Rate mL/min (>60) Glucose Level 180 MG/DL (74-106) H Calcium Level 8.5 MG/DL (8.5-10.1) Magnesium Level 1.4 MG/DL (1.8-2.4) L Intake and Output 06/11/17 06/12/17 19:00 07:00 Intake Total 1040.000 ml Balance 1040.000 ml Free Water 50 ml IV Total 675.000 ml Tube Feeding 315 ml Objective GENERAL: The patient awake, responsive, in no acute distress. HEAD AND NECK: Pupils equal and reactive to light. Anicteric. + NG Tube. NECK: Supple. Right side mass, No JVD. LUNGS: fair air entry. No wheezing or rales. Decreased air in the bases. HEART: S1 and S2. Regular rhythm. No gallops. ABDOMEN: Soft, nondistended, and nontender. Positive bowel sounds. EXTREMITIES: No cyanosis, clubbing, or edema. LUE piccline. NEUROLOGIC: Cranial nerves II through XII grossly unremarkable. Motor is 5/5 in all extremities. Gait unsteady. PSYCHIATRIC: Mood is depressed. Assessment/Plan Assessment/Plan ASSESSMENT: 1. Neutropenic / Pancytopenia most likely chemotherapy induced. 2. Severe dehydration and hypovolemia. 3. History of locally advanced laryngeal squamous cell carcinoma. 4. History of hypertension, presently hypotensive. 5. Dysphagia s/p NG tube placement. 6. Hypokalemia. 7. Hypomagnesemia PLAN: AM laboratory. Tube feeding@ 60 cc/hr. Code status, Full Code. Consider PEG placement.if failed video swallow study in AM. Thorazine for hiccups PRN Code status: Full Code. DVT prophylaxis with SCD. Abx: Vanco / Cefepime On Gronix injection Mg IV, Kcl supplements as needed IVF PT Mobility 2D Echo Technically difficult study due to poor acoustical windows. Normal left ventricular chamber size, systolic function and wall motion. Left ventricular ejection fraction estimated to be 60-65%. No evidence of left ventricular hypertrophy. No evidence of pericardial or pleural effusion. All other cardiac chamber sizes are within normal limits. Focal aortic valve sclerosis with adequate cusp excursion. Thickened mitral valve leaflets with normal excursion. Mild mitral annulus and aortic root calcification. Pulmonic valve not well visualized. Normal tricuspid valve structure. IVC is not obtainable. A color flow and spectral Doppler study was performed and revealed: No aortic regurgitation. No mitral regurgitation. Mitral diastolic velocities suggest reduced left ventricular relaxation c/w diastolic dysfunction grade 1. No tricuspid regurgitation. Joseph March MD Jun 11, 2017 15:16
[2017-06-11 15:44] VITALS: BP 128/73
[2017-06-11 19:33] VITALS: BP 132/75
[2017-06-11] MEDS: Dyna-Hex 2% Top Sol 2oz TOPIC SCH (20:35)
[2017-06-11] MEDS ORDERED: TBO-Filgrastim 480 mcg/0.8ml SQ ONE (21:00)
--- NOTE | 2017-06-11 22:35 | General Progress Note ---
Assessment/Plan Assessment/Plan ASSESSMENT AND PLAN: 1. Laryngeal carcinoma, squamous cell, on cisplatinum, Taxotere, prednisone, and 5-fluorouracil. 2. Neutropenia 2/2 myelosuppressive chemotherapy. He is receiving tbo filgastrim. 3. Lactic acidosis, slightly elevated lactic acid. 4. Dehydration, likely secondary to recent administration of chemotherapy. 5. Hypertension, currently well controlled Subjective Allergies: Coded Allergies: No Known Allergies (Unverified , 06/08/17) All Systems: reviewed and negative except above Subjective NAD Objective Last 24 Hour Vital Signs Date Time Temp Pulse Resp B/P (MAP) Pulse Ox O2 Delivery O2 Flow Rate FiO2 06/11/17 20:35 90 132/75 06/11/17 19:33 98.8 90 20 132/75 97 Room Air 06/11/17 19:05 81 18 Room Air 06/11/17 15:44 98.2 84 19 128/73 99 Room Air 06/11/17 12:00 97.8 94 19 146/87 97 Room Air 06/11/17 08:23 87 135/75 06/11/17 08:23 87 135/75 06/11/17 08:00 97.5 87 19 135/75 98 Room Air 06/11/17 07:30 84 18 Room Air 06/11/17 04:00 98.2 90 18 152/82 97 Room Air 06/10/17 23:37 96.6 93 20 133/76 96 Room Air Intake and Output 06/11/17 06/12/17 19:00 07:00 Intake Total 1435.000 ml Balance 1435.000 ml Free Water 90 ml IV Total 850.000 ml Tube Feeding 495 ml Laboratory Tests 06/11/17 06:00: White Blood Count 2.1#*L, Red Blood Count 4.30L, Hemoglobin 13.5L, Hematocrit 40.0L, Mean Corpuscular Volume 93, Mean Corpuscular Hemoglobin 31.2H, Mean Corpuscular Hemoglobin Concent 33.6, Red Cell Distribution Width 11.4L, Platelet Count 81L, Mean Platelet Volume 10.6H, Neutrophils (%) (Auto) , Lymphocytes (%) (Auto) , Monocytes (%) (Auto) , Eosinophils (%) (Auto) , Basophils (%) (Auto) , Differential Total Cells Counted 100, Neutrophils % ( Manual) 9L, Lymphocytes % (Manual) 48H, Monocytes % (Manual) 29H, Eosinophils % (Manual) 0, Basophils % (Manual) 0, Band Neutrophils 14H, Platelet Estimate DecreasedL, Platelet Morphology Normal, Red Blood Cell Morphology Normal, Sodium Level 133L, Potassium Level 3.8, Chloride Level 98, Carbon Dioxide Level 31, Anion Gap 4L, Blood Urea Nitrogen 24H, Creatinine 1.2, Estimat Glomerular Filtration Rate , Glucose Level 180H, Calcium Level 8.5, Magnesium Level 1.4L Height (Feet): 5 Height (Inches): 11.00 Weight (Pounds): 165 General Appearance: no apparent distress EENT: normal ENT inspection Neck: normal alignment Cardiovascular: normal peripheral pulses, no gallop/murmur Respiratory/Chest: chest wall non-tender Extremities: non-tender Neurologic: cause analyst II-XII grossly normal Skin: normal pigmentation Tripp Quispe Jun 11, 2017 22:35
[2017-06-11] MEDS: Cefepime HCl 2 GM in D5W 55 ML IV SCH (23:13)
[2017-06-11 23:34] VITALS: BP 128/73
[2017-06-12 04:00] VITALS: BP 140/77
[2017-06-12] MEDS: Morphine Sulfate 2mg/ml Inj IVP PRN ×2 (04:45→09:18)
[2017-06-12] MEDS: D5NS w/KCl 40mEq 1000ml 1,000 ML IV SCH ×2 (06:21→23:49)
[2017-06-12 07:10] LABS: MEAN CORPUSCULAR HGB CONC 33.6 G/DL (32.0-36.0); MEAN CORPUSCULAR VOLUME 92 FL (80-99); PLATELET COUNT 84 K/UL (150-450); RED BLOOD COUNT 4.23 M/UL (4.70-6.10); RED CELL DISTRIBUTION WIDTH 11.4 % (11.6-14.8); WHITE BLOOD COUNT 6.5 K/UL (4.8-10.8)
[2017-06-12 07:49] LABS: ANION GAP 4 mmol/L (5-15); CALCIUM 8.5 MG/DL (8.5-10.1); CARBON DIOXIDE 31 MMOL/L (21-32); CHLORIDE 98 MMOL/L (98-107); CREATININE 1.1 MG/DL (0.55-1.30); POTASSIUM 4.1 MMOL/L (3.5-5.1); SODIUM 133 MMOL/L (136-145)
[2017-06-12 08:00] VITALS: BP 134/66
--- NOTE | 2017-06-12 08:15 | Consultation ---
DATE OF CONSULTATION: 06/09/2017 NOTE: POOR AUDIO QUALITY GASTROENTEROLOGY CONSULTATION CONSULTING PHYSICIAN: Tc Montenegro M.D. CHIEF COMPLAINT: I was asked to see this patient by Dr. Joseph March for evaluation of dysphagia and electrolyte abnormalities. HISTORY OF PRESENT ILLNESS: The patient is a pleasant 76-year-old man with a history of laryngeal cancer, who is undergoing chemotherapy. The patient has undergone chemotherapy and was felt to be responding, but his throat soreness worsened to the point of him not being able to swallow and he became very dizzy and lightheaded and near syncopal event and came to the emergency room where he was admitted. He is unable to provide good nutritional support to himself. He has also history of chemotherapy and cell stimulation agents as part of his chemotherapy regimen. PAST MEDICAL HISTORY: History of laryngeal cancer, history of PICC line, and hypertension. MEDICATIONS: See chart list for details. ALLERGIES: None. FAMILY HISTORY: Noncontributory. SOCIAL HISTORY: The patient is . He is a retired anesthesiologist. He does not smoke or drink. REVIEW OF SYSTEMS: Otherwise negative. PHYSICAL EXAMINATION: GENERAL: The patient is a pleasant man, seen in his room. HEENT: Normocephalic and atraumatic. Sclerae anicteric. Oropharynx clear. NECK: Supple. There was right-sided neck swelling consistent with his laryngeal cancer. CHEST: Clear to auscultation. CARDIOVASCULAR: Revealed a regular rate. ABDOMEN: Soft. EXTREMITIES: Reveal no edema. LABORATORY DATA: Noted. 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 I discussed the patient's management at this time and I will proceed with NJT placement. NJT feeding for now until the bone marrow has recovered from recent chemotherapy. At that time, he may need a gastrostomy tube placement for enteral access and nutrition. Once chemotherapy is over, then perhaps it can be removed. Nasojejunal tube was placed at the bedside using standard technique and the position was verified by bedside technique. X-rays were ordered for placement confirmation. RECOMMENDATIONS: 1. Confirm x-rays and begin tube feedings via nasojejunal tube. 2. To follow white count and other hematologic parameters. 3. Gastrostomy tube , once the hematology parameters have stabilized. 4. Oncology followup. Thank you for asking me to participate in the care of this patient. Tc Montenegro M.D. DR: Candido JOB#: [id number] CC: [id number]
[2017-06-12 08:21] LABS: BAND NEUTROPHILS % (MANUAL) 12 % (0-8); BASOPHILS % (MANUAL) 0 % (0-2); EOSINOPHILS % (MANUAL) 1 % (0-3); LYMPHOCYTES % (MANUAL) 19 % (20-45); NEUTROPHILS % (MANUAL) 55 % (45-75); PLATELET ESTIMATE DECREASED; PLATELET MORPHOLOGY NORMAL; TOTAL CELLS COUNTED 100
[2017-06-12 08:22] LABS: HYPOCHROMASIA 1+
[2017-06-12] MEDS: Heparin 5000 units/ml inj SUBQ SCH ×2 (08:34→21:00)
[2017-06-12 09:11] LABS: OTHERS PATHOLOGIST COMMENT
--- NOTE | 2017-06-12 10:29 | General Progress Note ---
Assessment/Plan Assessment/Plan Assessment - Laryngeal CA - neutropenia - resolved - dysphagia - s/p NJT Recommendations - continue TF - d/c neutropenic precautions - video swallow Monday - If passes, will need calorie count Subjective Allergies: Coded Allergies: No Known Allergies (Unverified , 06/08/17) Subjective Feels OK no new complaints tolerating NJT feeds WBC now normal Objective Last 24 Hour Vital Signs Date Time Temp Pulse Resp B/P (MAP) Pulse Ox O2 Delivery O2 Flow Rate FiO2 06/12/17 08:58 86 134/66 06/12/17 08:57 86 134/66 06/12/17 08:00 96.7 86 18 134/66 98 Room Air 06/12/17 04:00 97.9 80 20 140/77 97 Room Air 06/11/17 23:34 97.9 65 20 128/73 97 Room Air 06/11/17 20:35 90 132/75 06/11/17 19:33 98.8 90 20 132/75 97 Room Air 06/11/17 19:05 81 18 Room Air 06/11/17 15:44 98.2 84 19 128/73 99 Room Air 06/11/17 12:00 97.8 94 19 146/87 97 Room Air Laboratory Tests 06/12/17 06:00: White Blood Count 6.5#, Red Blood Count 4.23L, Hemoglobin 13.1L, Hematocrit 39.0L, Mean Corpuscular Volume 92, Mean Corpuscular Hemoglobin 31.0, Mean Corpuscular Hemoglobin Concent 33.6, Red Cell Distribution Width 11.4L, Platelet Count 84L, Mean Platelet Volume 10.0, Neutrophils (%) (Auto) , Lymphocytes (%) (Auto) , Monocytes (%) (Auto) , Eosinophils (%) (Auto) , Basophils (%) (Auto) , Differential Total Cells Counted 100, Neutrophils % ( Manual) 55, Lymphocytes % (Manual) 19L, Monocytes % (Manual) 13H, Eosinophils % (Manual) 1, Basophils % (Manual) 0, Band Neutrophils 12H, Platelet Estimate DecreasedL, Platelet Morphology Normal, Red Blood Cell Morphology , Hypochromasia 1+, Sodium Level 133L, Potassium Level 4.1, Chloride Level 98, Carbon Dioxide Level 31, Anion Gap 4L, Blood Urea Nitrogen 21H, Creatinine 1.1, Estimat Glomerular Filtration Rate , Glucose Level 149H, Calcium Level 8.5, Magnesium Level 1.3L Height (Feet): 5 Height (Inches): 11.00 Weight (Pounds): 165 Objective WDWN AA MAN NCAT (+) NJT (+) (R) neck swelling CTA RR soft No edema BRETT RAPHAEL Jun 12, 2017 10:29
--- NOTE | 2017-06-12 10:51 | Infectious Diseases Prog Note ---
Assessment/Plan Assessment/Plan ASSESSMENT: 76 y/o male with: // Neutropenic fever- resolved Bcx NTD CXR : lungs clear //pancytopenia 2/2 antineoplastic chemotherapy, // Odynophagia / dysphagia r/o helena esophagitis // Laryngeal CA SP chemo # 1 ( 06/02 ) // Near syncope // Dehydration // ROYAL, m/l pre-renal dehydration // Hyponatremia / electrolyte imbalance // Hyperglycemia // Recent LUE PICC ~1week // HTN // NKDA // Full Code PLAN: -D/c empiric IV vancomycin #5, and continue cefepime d# 5/7 and fluconazole d # 4/10-14 (switch to PO) -upon discharge, switch Cefepime to Cipro to complete empiric course -obtain EKG to monitor Qtc on azole therapy - f/u cultures - monitor CBC, temperatures - monitor BMP - IVF / nutritional support Subjective Allergies: Coded Allergies: No Known Allergies (Unverified , 06/08/17) Subjective afebrile in 48hrs neutropenia resolved Bcx NTD Objective Vital Signs Last 24 Hour Vital Signs Date Time Temp Pulse Resp B/P (MAP) Pulse Ox O2 Delivery O2 Flow Rate FiO2 06/12/17 08:58 86 134/66 06/12/17 08:57 86 134/66 06/12/17 08:00 96.7 86 18 134/66 98 Room Air 06/12/17 04:00 97.9 80 20 140/77 97 Room Air 06/11/17 23:34 97.9 65 20 128/73 97 Room Air 06/11/17 20:35 90 132/75 06/11/17 19:33 98.8 90 20 132/75 97 Room Air 06/11/17 19:05 81 18 Room Air 06/11/17 15:44 98.2 84 19 128/73 99 Room Air 06/11/17 12:00 97.8 94 19 146/87 97 Room Air Height (Feet): 5 Height (Inches): 11.00 Weight (Pounds): 165 Objective General Appearance: no acute distress, cachetic HEENT: normocephalic, atraumatic, anicteric, other - NGT with TF Respiratory/Chest: lungs clear, no respiratory distress, no accessory muscle use Cardiovascular: normal peripheral pulses, normal rate Abdomen: normal bowel sounds, no organomegaly Extremities: no edema, pedal pulses normal Neurologic/Psychiatric: no motor/sensory deficits, alert, oriented x 3, responsive Musculoskeletal: atrophy Laboratory Tests Test 06/12/17 06:00 White Blood Count 6.5 K/UL (4.8-10.8) # Red Blood Count 4.23 M/UL (4.70-6.10) L Hemoglobin 13.1 G/DL (14.2-18.0) L Hematocrit 39.0 % (42.0-52.0) L Mean Corpuscular Volume 92 FL (80-99) Mean Corpuscular Hemoglobin 31.0 PG (27.0-31.0) Mean Corpuscular Hemoglobin Concent 33.6 G/DL (32.0-36.0) Red Cell Distribution Width 11.4 % (11.6-14.8) L Platelet Count 84 K/UL (150-450) L Mean Platelet Volume 10.0 FL (6.5-10.1) Neutrophils (%) (Auto) % (45.0-75.0) Lymphocytes (%) (Auto) % (20.0-45.0) Monocytes (%) (Auto) % (1.0-10.0) Eosinophils (%) (Auto) % (0.0-3.0) Basophils (%) (Auto) % (0.0-2.0) Differential Total Cells Counted 100 Neutrophils % (Manual) 55 % (45-75) Lymphocytes % (Manual) 19 % (20-45) L Monocytes % (Manual) 13 % (1-10) H Eosinophils % (Manual) 1 % (0-3) Basophils % (Manual) 0 % (0-2) Band Neutrophils 12 % (0-8) H Platelet Estimate Decreased L Platelet Morphology Normal Red Blood Cell Morphology Hypochromasia 1+ Sodium Level 133 MMOL/L (136-145) L Potassium Level 4.1 MMOL/L (3.5-5.1) Chloride Level 98 MMOL/L (98-107) Carbon Dioxide Level 31 MMOL/L (21-32) Anion Gap 4 mmol/L (5-15) L Blood Urea Nitrogen 21 mg/dL (7-18) H Creatinine 1.1 MG/DL (0.55-1.30) Estimat Glomerular Filtration Rate mL/min (>60) Glucose Level 149 MG/DL (74-106) H Calcium Level 8.5 MG/DL (8.5-10.1) Magnesium Level 1.3 MG/DL (1.8-2.4) L Current Medications Medications (Trade) Dose Ordered Sig/Baron Route PRN Reason Start Time Stop Time Status Last Admin Dose Admin Acetaminophen (Tylenol) 650 mg Q4H PRN ORAL T>100.5 06/09/17 14:30 07/08/17 14:29 06/10/17 08:59 Albuterol/ Ipratropium (Albuterol/ Ipratropium) 3 ml Q4H PRN HHN Shortness of Breath 06/11/17 13:45 06/15/17 13:44 Amlodipine Besylate (Norvasc) 10 mg DAILY ORAL 06/10/17 09:00 07/10/17 08:59 06/12/17 08:58 Atenolol (Tenormin) 50 mg Q12HR ORAL 06/10/17 09:00 07/10/17 08:59 06/12/17 08:57 Cefepime HCl 2 gm/ Dextrose 55 ml @ 110 mls/hr Q12HR@1100,2300 IV 06/11/17 23:00 06/18/17 22:59 06/11/17 23:13 Chlorhexidine Gluconate (Jaclyn-Hex 2%) 1 applic DAILY@2000 TOPIC 06/09/17 20:00 07/09/17 19:59 06/11/17 20:35 Chlorpromazine (Thorazine) 25 mg Q8H PRN IM hiccups 06/09/17 14:30 07/08/17 14:29 Dextrose/ Electrolytes 1,000 ml @ 75 mls/hr [id number] IV 06/10/17 12:00 07/10/17 11:59 06/12/17 06:21 Fluconazole/ Sodium Chloride 100 ml @ 100 mls/hr Q24H IV 06/09/17 15:00 06/16/17 14:59 06/11/17 14:43 Heparin Sodium (Porcine) (Heparin 5000 units/ml) 5,000 units EVERY 12 HOURS SUBQ 06/09/17 21:00 07/09/17 08:59 Morphine Sulfate (Morphine Sulfate) 2 mg Q4H PRN IVP Moderate Pain (Pain Scale 4-6) 06/09/17 14:30 06/15/17 14:29 06/12/17 09:18 Nitroglycerin (Ntg) 0.4 mg Q5MIN X 3 DOSES PRN SL Prn Chest Pain 06/09/17 14:00 07/08/17 17:59 Ondansetron HCl (Zofran) 4 mg Q6H PRN IVP Nausea & Vomiting 06/09/17 14:30 07/08/17 14:29 06/12/17 04:44 Polyethylene Glycol (Miralax) 17 gm DAILYPRN PRN ORAL Constipation 06/09/17 14:30 07/08/17 14:29 06/11/17 06:44 Prednisone (predniSONE) 20 mg BID ORAL 06/10/17 09:00 07/10/17 08:59 06/12/17 08:57 Tbo-Filgrastim (Granix) 300 mcg QHS SQ 06/12/17 21:00 07/12/17 20:59 Temazepam (Restoril) 15 mg HSPRN PRN ORAL Insomnia 06/09/17 21:00 06/15/17 20:59 Vancomycin HCl (Vanco rx to dose) 1 ea DAILY PRN MISC . 06/09/17 14:30 07/09/17 14:29 Vancomycin HCl/ Dextrose 250 ml @ 166.667 mls/hr Q24H IVPB 06/10/17 11:00 06/15/17 10:59 06/11/17 12:08 Jessica Corona M.D. Jun 12, 2017 10:51
[2017-06-12] MEDS: Cefepime HCl 2 GM in D5W 55 ML IV SCH ×2 (11:28→21:32)
[2017-06-12] MEDS: Miralax 17gm pkt ORAL PRN (11:30)
[2017-06-12 12:00] VITALS: BP 133/71
[2017-06-12] MEDS ORDERED: Fluconazole 100mg tab ORAL ONE (14:30)
--- NOTE | 2017-06-12 15:22 | Pulmonology Progress Note ---
Assessment/Plan Problems: (1) Sepsis (2) Neutropenia (3) Hypotension (4) Squamous cell carcinoma of larynx (5) Near syncope (6) At high risk for aspiration Assessment/Plan start feeding dc neutropenic isolation, WBC better now check electrolytes f/u swallow study results. Subjective ROS Limited/Unobtainable: No Interval Events: feeling better, just finished swallow study Allergies: Coded Allergies: No Known Allergies (Unverified , 06/08/17) Objective Last 24 Hour Vital Signs Date Time Temp Pulse Resp B/P (MAP) Pulse Ox O2 Delivery O2 Flow Rate FiO2 06/12/17 12:00 96.6 76 18 133/71 95 Room Air 06/12/17 09:48 96.7 06/12/17 08:58 86 134/66 06/12/17 08:57 86 134/66 06/12/17 08:00 96.7 86 18 134/66 98 Room Air 06/12/17 07:35 87 16 Room Air 06/12/17 04:00 97.9 80 20 140/77 97 Room Air 06/11/17 23:34 97.9 65 20 128/73 97 Room Air 06/11/17 20:35 90 132/75 06/11/17 19:33 98.8 90 20 132/75 97 Room Air 06/11/17 19:05 81 18 Room Air 06/11/17 15:44 98.2 84 19 128/73 99 Room Air Intake and Output 06/12/17 06/13/17 19:00 07:00 Intake Total 1025 ml Balance 1025 ml Free Water 100 ml IV Total 655 ml Tube Feeding 270 ml General Appearance: cachetic HEENT: normocephalic, atraumatic Respiratory/Chest: chest wall non-tender, lungs clear Cardiovascular: normal peripheral pulses, regular rhythm Abdomen: normal bowel sounds, no organomegaly Genitourinary: normal external genitalia Skin: no lesions Neurologic/Psychiatric: paint mixer II-XII grossly normal Laboratory Tests 06/12/17 06:00: White Blood Count 6.5#, Red Blood Count 4.23L, Hemoglobin 13.1L, Hematocrit 39.0L, Mean Corpuscular Volume 92, Mean Corpuscular Hemoglobin 31.0, Mean Corpuscular Hemoglobin Concent 33.6, Red Cell Distribution Width 11.4L, Platelet Count 84L, Mean Platelet Volume 10.0, Neutrophils (%) (Auto) , Lymphocytes (%) (Auto) , Monocytes (%) (Auto) , Eosinophils (%) (Auto) , Basophils (%) (Auto) , Differential Total Cells Counted 100, Neutrophils % ( Manual) 55, Lymphocytes % (Manual) 19L, Monocytes % (Manual) 13H, Eosinophils % (Manual) 1, Basophils % (Manual) 0, Band Neutrophils 12H, Platelet Estimate DecreasedL, Platelet Morphology Normal, Red Blood Cell Morphology , Hypochromasia 1+, Sodium Level 133L, Potassium Level 4.1, Chloride Level 98, Carbon Dioxide Level 31, Anion Gap 4L, Blood Urea Nitrogen 21H, Creatinine 1.1, Estimat Glomerular Filtration Rate , Glucose Level 149H, Calcium Level 8.5, Magnesium Level 1.3L 06/12/17 10:35: Vancomycin Level Trough 2.3L Current Medications Medications (Trade) Dose Ordered Sig/Baron Route PRN Reason Start Time Stop Time Status Last Admin Dose Admin Acetaminophen (Tylenol) 650 mg Q4H PRN ORAL T>100.5 06/09/17 14:30 07/08/17 14:29 06/10/17 08:59 Albuterol/ Ipratropium (Albuterol/ Ipratropium) 3 ml Q4H PRN HHN Shortness of Breath 06/11/17 13:45 06/15/17 13:44 Amlodipine Besylate (Norvasc) 10 mg DAILY ORAL 06/10/17 09:00 07/10/17 08:59 06/12/17 08:58 Atenolol (Tenormin) 50 mg Q12HR ORAL 06/10/17 09:00 07/10/17 08:59 06/12/17 08:57 Cefepime HCl 2 gm/ Dextrose 55 ml @ 110 mls/hr Q12HR@1100,2300 IV 06/11/17 23:00 06/18/17 22:59 06/12/17 11:28 Chlorhexidine Gluconate (Jaclyn-Hex 2%) 1 applic DAILY@2000 TOPIC 06/09/17 20:00 07/09/17 19:59 06/11/17 20:35 Chlorpromazine (Thorazine) 25 mg Q8H PRN IM hiccups 06/09/17 14:30 07/08/17 14:29 Dextrose/ Electrolytes 1,000 ml @ 75 mls/hr [id number] IV 06/10/17 12:00 07/10/17 11:59 06/12/17 06:21 Heparin Sodium (Porcine) (Heparin 5000 units/ml) 5,000 units EVERY 12 HOURS SUBQ 06/09/17 21:00 07/09/17 08:59 Morphine Sulfate (Morphine Sulfate) 2 mg Q4H PRN IVP Moderate Pain (Pain Scale 4-6) 06/09/17 14:30 06/15/17 14:29 06/12/17 09:18 Nitroglycerin (Ntg) 0.4 mg Q5MIN X 3 DOSES PRN SL Prn Chest Pain 06/09/17 14:00 07/08/17 17:59 Ondansetron HCl (Zofran) 4 mg Q6H PRN IVP Nausea & Vomiting 06/09/17 14:30 07/08/17 14:29 06/12/17 04:44 Polyethylene Glycol (Miralax) 17 gm DAILYPRN PRN ORAL Constipation 06/09/17 14:30 07/08/17 14:29 06/12/17 11:30 Prednisone (predniSONE) 20 mg BID ORAL 06/10/17 09:00 07/10/17 08:59 06/12/17 08:57 Tbo-Filgrastim (Granix) 300 mcg QHS SQ 06/12/17 21:00 07/12/17 20:59 Temazepam (Restoril) 15 mg HSPRN PRN ORAL Insomnia 06/09/17 21:00 06/15/17 20:59 [employer] Jun 12, 2017 15:22
--- NOTE | 2017-06-12 16:10 | General Progress Note ---
Assessment/Plan Assessment/Plan ASSESSMENT AND PLAN: 1. Laryngeal carcinoma, squamous cell, on cisplatinum, Taxotere, prednisone, and 5-fluorouracil. 2. Neutropenia 2/2 myelosuppressive chemotherapy. He is receiving tbo filgastrim. wbc count now within normal limits 3. Lactic acidosis, slightly elevated lactic acid. 4. Dehydration, likely secondary to recent administration of chemotherapy. 5. Hypertension, currently well controlled Subjective ROS Limited/Unobtainable: Yes Allergies: Coded Allergies: No Known Allergies (Unverified , 06/08/17) Subjective no major events, no fever or chills Objective Last 24 Hour Vital Signs Date Time Temp Pulse Resp B/P (MAP) Pulse Ox O2 Delivery O2 Flow Rate FiO2 06/12/17 12:00 96.6 76 18 133/71 95 Room Air 06/12/17 09:48 96.7 06/12/17 08:58 86 134/66 06/12/17 08:57 86 134/66 06/12/17 08:00 96.7 86 18 134/66 98 Room Air 06/12/17 07:35 87 16 Room Air 06/12/17 04:00 97.9 80 20 140/77 97 Room Air 06/11/17 23:34 97.9 65 20 128/73 97 Room Air 06/11/17 20:35 90 132/75 06/11/17 19:33 98.8 90 20 132/75 97 Room Air 06/11/17 19:05 81 18 Room Air Intake and Output 06/12/17 06/13/17 19:00 07:00 Intake Total 1025 ml Balance 1025 ml Free Water 100 ml IV Total 655 ml Tube Feeding 270 ml Laboratory Tests 06/12/17 06:00: White Blood Count 6.5#, Red Blood Count 4.23L, Hemoglobin 13.1L, Hematocrit 39.0L, Mean Corpuscular Volume 92, Mean Corpuscular Hemoglobin 31.0, Mean Corpuscular Hemoglobin Concent 33.6, Red Cell Distribution Width 11.4L, Platelet Count 84L, Mean Platelet Volume 10.0, Neutrophils (%) (Auto) , Lymphocytes (%) (Auto) , Monocytes (%) (Auto) , Eosinophils (%) (Auto) , Basophils (%) (Auto) , Differential Total Cells Counted 100, Neutrophils % ( Manual) 55, Lymphocytes % (Manual) 19L, Monocytes % (Manual) 13H, Eosinophils % (Manual) 1, Basophils % (Manual) 0, Band Neutrophils 12H, Platelet Estimate DecreasedL, Platelet Morphology Normal, Red Blood Cell Morphology , Hypochromasia 1+, Sodium Level 133L, Potassium Level 4.1, Chloride Level 98, Carbon Dioxide Level 31, Anion Gap 4L, Blood Urea Nitrogen 21H, Creatinine 1.1, Estimat Glomerular Filtration Rate , Glucose Level 149H, Calcium Level 8.5, Magnesium Level 1.3L 06/12/17 10:35: Vancomycin Level Trough 2.3L Height (Feet): 5 Height (Inches): 11.00 Weight (Pounds): 165 General Appearance: no apparent distress EENT: normal ENT inspection Neck: normal alignment Cardiovascular: normal peripheral pulses Respiratory/Chest: chest wall non-tender 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
--- NOTE | 2017-06-12 19:37 | Internal Med Progress Note ---
Subjective Date of Service: Jun 12, 2017 Physician Name SantamariaTamika Attending Physician Joseph March MD Current Medications Medications (Trade) Dose Ordered Sig/Baron Route PRN Reason Start Time Stop Time Status Last Admin Dose Admin Acetaminophen (Tylenol) 650 mg Q4H PRN ORAL T>100.5 06/09/17 14:30 07/08/17 14:29 06/10/17 08:59 Albuterol/ Ipratropium (Albuterol/ Ipratropium) 3 ml Q4H PRN HHN Shortness of Breath 06/11/17 13:45 06/15/17 13:44 Amlodipine Besylate (Norvasc) 10 mg DAILY ORAL 06/10/17 09:00 07/10/17 08:59 06/12/17 08:58 Atenolol (Tenormin) 50 mg Q12HR ORAL 06/10/17 09:00 07/10/17 08:59 06/12/17 08:57 Cefepime HCl 2 gm/ Dextrose 55 ml @ 110 mls/hr Q12HR@1100,2300 IV 06/11/17 23:00 06/18/17 22:59 06/12/17 11:28 Chlorhexidine Gluconate (Jaclyn-Hex 2%) 1 applic DAILY@2000 TOPIC 06/09/17 20:00 07/09/17 19:59 06/11/17 20:35 Dextrose/ Electrolytes 1,000 ml @ 75 mls/hr [id number] IV 06/10/17 12:00 07/10/17 11:59 06/12/17 06:21 Fluconazole (Diflucan) 200 mg DAILY@1500 ORAL 06/13/17 15:00 06/20/17 14:59 Heparin Sodium (Porcine) (Heparin 5000 units/ml) 5,000 units EVERY 12 HOURS SUBQ 06/09/17 21:00 07/09/17 08:59 Morphine Sulfate (Morphine Sulfate) 2 mg Q4H PRN IVP Moderate Pain (Pain Scale 4-6) 06/09/17 14:30 06/15/17 14:29 06/12/17 09:18 Nitroglycerin (Ntg) 0.4 mg Q5MIN X 3 DOSES PRN SL Prn Chest Pain 06/09/17 14:00 07/08/17 17:59 Ondansetron HCl (Zofran) 4 mg Q6H PRN IVP Nausea & Vomiting 06/09/17 14:30 07/08/17 14:29 06/12/17 04:44 Polyethylene Glycol (Miralax) 17 gm DAILYPRN PRN ORAL Constipation 06/09/17 14:30 07/08/17 14:29 06/12/17 11:30 Prednisone (predniSONE) 20 mg BID ORAL 06/10/17 09:00 07/10/17 08:59 06/12/17 17:28 Tbo-Filgrastim (Granix) 300 mcg QHS SQ 06/12/17 21:00 07/12/17 20:59 Temazepam (Restoril) 15 mg HSPRN PRN ORAL Insomnia 06/09/17 21:00 06/15/17 20:59 Allergies: Coded Allergies: No Known Allergies (Unverified , 06/08/17) ROS Limited/Unobtainable: No Constitutional: Reports: no symptoms HEENT: Reports: no symptoms Cardiovascular: Reports: no symptoms Respiratory: Reports: no symptoms Gastrointestinal/Abdominal: Reports: no symptoms Genitourinary: Reports: no symptoms Neurologic/Psychiatric: Reports: no symptoms Objective Last Vital Signs Date Time Temp Pulse Resp B/P (MAP) Pulse Ox O2 Delivery O2 Flow Rate FiO2 06/12/17 12:00 96.6 76 18 133/71 95 Room Air Laboratory Tests Test 06/12/17 06:00 06/12/17 10:35 White Blood Count 6.5 K/UL (4.8-10.8) # Red Blood Count 4.23 M/UL (4.70-6.10) L Hemoglobin 13.1 G/DL (14.2-18.0) L Hematocrit 39.0 % (42.0-52.0) L Mean Corpuscular Volume 92 FL (80-99) Mean Corpuscular Hemoglobin 31.0 PG (27.0-31.0) Mean Corpuscular Hemoglobin Concent 33.6 G/DL (32.0-36.0) Red Cell Distribution Width 11.4 % (11.6-14.8) L Platelet Count 84 K/UL (150-450) L Mean Platelet Volume 10.0 FL (6.5-10.1) Neutrophils (%) (Auto) % (45.0-75.0) Lymphocytes (%) (Auto) % (20.0-45.0) Monocytes (%) (Auto) % (1.0-10.0) Eosinophils (%) (Auto) % (0.0-3.0) Basophils (%) (Auto) % (0.0-2.0) Differential Total Cells Counted 100 Neutrophils % (Manual) 55 % (45-75) Lymphocytes % (Manual) 19 % (20-45) L Monocytes % (Manual) 13 % (1-10) H Eosinophils % (Manual) 1 % (0-3) Basophils % (Manual) 0 % (0-2) Band Neutrophils 12 % (0-8) H Platelet Estimate Decreased L Platelet Morphology Normal Red Blood Cell Morphology Hypochromasia 1+ Sodium Level 133 MMOL/L (136-145) L Potassium Level 4.1 MMOL/L (3.5-5.1) Chloride Level 98 MMOL/L (98-107) Carbon Dioxide Level 31 MMOL/L (21-32) Anion Gap 4 mmol/L (5-15) L Blood Urea Nitrogen 21 mg/dL (7-18) H Creatinine 1.1 MG/DL (0.55-1.30) Estimat Glomerular Filtration Rate mL/min (>60) Glucose Level 149 MG/DL (74-106) H Calcium Level 8.5 MG/DL (8.5-10.1) Magnesium Level 1.3 MG/DL (1.8-2.4) L Vancomycin Level Trough 2.3 ug/mL (5.0-12.0) L Intake and Output 06/12/17 06/13/17 19:00 07:00 Intake Total 1025 ml Balance 1025 ml Free Water 100 ml IV Total 655 ml Tube Feeding 270 ml # Voids 8 Objective Objective GENERAL: The patient awake, responsive, in no acute distress. HEAD AND NECK: Pupils equal and reactive to light. Anicteric. + NG Tube. NECK: Supple. Right side mass, No JVD. LUNGS: fair air entry. No wheezing or rales. Decreased air in the bases. HEART: S1 and S2. Regular rhythm. No gallops. ABDOMEN: Soft, nondistended, and nontender. Positive bowel sounds. EXTREMITIES: No cyanosis, clubbing, or edema. LUE piccline. NEUROLOGIC: Cranial nerves II through XII grossly unremarkable. Motor is 5/5 in all extremities. Gait unsteady. PSYCHIATRIC: Mood is depressed. TAMIKA SANTAMARIA Jun 12, 2017 19:37
--- NOTE | 2017-06-12 19:51 | Internal Med Progress Note ---
Subjective Date of Service: Jun 12, 2017 Physician Name SantamariaTamika Attending Physician Joseph March MD Current Medications Medications (Trade) Dose Ordered Sig/Baron Route PRN Reason Start Time Stop Time Status Last Admin Dose Admin Acetaminophen (Tylenol) 650 mg Q4H PRN ORAL T>100.5 06/09/17 14:30 07/08/17 14:29 06/10/17 08:59 Albuterol/ Ipratropium (Albuterol/ Ipratropium) 3 ml Q4H PRN HHN Shortness of Breath 06/11/17 13:45 06/15/17 13:44 Amlodipine Besylate (Norvasc) 10 mg DAILY ORAL 06/10/17 09:00 07/10/17 08:59 06/12/17 08:58 Atenolol (Tenormin) 50 mg Q12HR ORAL 06/10/17 09:00 07/10/17 08:59 06/12/17 08:57 Cefepime HCl 2 gm/ Dextrose 55 ml @ 110 mls/hr Q12HR@1100,2300 IV 06/11/17 23:00 06/18/17 22:59 06/12/17 11:28 Chlorhexidine Gluconate (Jaclyn-Hex 2%) 1 applic DAILY@2000 TOPIC 06/09/17 20:00 07/09/17 19:59 06/11/17 20:35 Dextrose/ Electrolytes 1,000 ml @ 75 mls/hr [id number] IV 06/10/17 12:00 07/10/17 11:59 06/12/17 06:21 Fluconazole (Diflucan) 200 mg DAILY@1500 ORAL 06/13/17 15:00 06/20/17 14:59 Heparin Sodium (Porcine) (Heparin 5000 units/ml) 5,000 units EVERY 12 HOURS SUBQ 06/09/17 21:00 07/09/17 08:59 Morphine Sulfate (Morphine Sulfate) 2 mg Q4H PRN IVP Moderate Pain (Pain Scale 4-6) 06/09/17 14:30 06/15/17 14:29 06/12/17 09:18 Nitroglycerin (Ntg) 0.4 mg Q5MIN X 3 DOSES PRN SL Prn Chest Pain 06/09/17 14:00 07/08/17 17:59 Ondansetron HCl (Zofran) 4 mg Q6H PRN IVP Nausea & Vomiting 06/09/17 14:30 07/08/17 14:29 06/12/17 04:44 Polyethylene Glycol (Miralax) 17 gm DAILYPRN PRN ORAL Constipation 06/09/17 14:30 07/08/17 14:29 06/12/17 11:30 Prednisone (predniSONE) 20 mg BID ORAL 06/10/17 09:00 07/10/17 08:59 06/12/17 17:28 Tbo-Filgrastim (Granix) 300 mcg QHS SQ 06/12/17 21:00 07/12/17 20:59 Temazepam (Restoril) 15 mg HSPRN PRN ORAL Insomnia 06/09/17 21:00 06/15/17 20:59 Allergies: Coded Allergies: No Known Allergies (Unverified , 06/08/17) ROS Limited/Unobtainable: No Constitutional: Reports: no symptoms HEENT: Reports: no symptoms Cardiovascular: Reports: no symptoms Respiratory: Reports: no symptoms Gastrointestinal/Abdominal: Reports: no symptoms Genitourinary: Reports: no symptoms Neurologic/Psychiatric: Reports: no symptoms Subjective 76 YO M admitted with laryngeal cancer and leukopenia. Cover for Int Med-Dr March. Objective Last Vital Signs Date Time Temp Pulse Resp B/P (MAP) Pulse Ox O2 Delivery O2 Flow Rate FiO2 06/12/17 12:00 96.6 76 18 133/71 95 Room Air Laboratory Tests Test 06/12/17 06:00 06/12/17 10:35 White Blood Count 6.5 K/UL (4.8-10.8) # Red Blood Count 4.23 M/UL (4.70-6.10) L Hemoglobin 13.1 G/DL (14.2-18.0) L Hematocrit 39.0 % (42.0-52.0) L Mean Corpuscular Volume 92 FL (80-99) Mean Corpuscular Hemoglobin 31.0 PG (27.0-31.0) Mean Corpuscular Hemoglobin Concent 33.6 G/DL (32.0-36.0) Red Cell Distribution Width 11.4 % (11.6-14.8) L Platelet Count 84 K/UL (150-450) L Mean Platelet Volume 10.0 FL (6.5-10.1) Neutrophils (%) (Auto) % (45.0-75.0) Lymphocytes (%) (Auto) % (20.0-45.0) Monocytes (%) (Auto) % (1.0-10.0) Eosinophils (%) (Auto) % (0.0-3.0) Basophils (%) (Auto) % (0.0-2.0) Differential Total Cells Counted 100 Neutrophils % (Manual) 55 % (45-75) Lymphocytes % (Manual) 19 % (20-45) L Monocytes % (Manual) 13 % (1-10) H Eosinophils % (Manual) 1 % (0-3) Basophils % (Manual) 0 % (0-2) Band Neutrophils 12 % (0-8) H Platelet Estimate Decreased L Platelet Morphology Normal Red Blood Cell Morphology Hypochromasia 1+ Sodium Level 133 MMOL/L (136-145) L Potassium Level 4.1 MMOL/L (3.5-5.1) Chloride Level 98 MMOL/L (98-107) Carbon Dioxide Level 31 MMOL/L (21-32) Anion Gap 4 mmol/L (5-15) L Blood Urea Nitrogen 21 mg/dL (7-18) H Creatinine 1.1 MG/DL (0.55-1.30) Estimat Glomerular Filtration Rate mL/min (>60) Glucose Level 149 MG/DL (74-106) H Calcium Level 8.5 MG/DL (8.5-10.1) Magnesium Level 1.3 MG/DL (1.8-2.4) L Vancomycin Level Trough 2.3 ug/mL (5.0-12.0) L Intake and Output 06/12/17 06/13/17 19:00 07:00 Intake Total 1025 ml Balance 1025 ml Free Water 100 ml IV Total 655 ml Tube Feeding 270 ml # Voids 8 Objective Objective GENERAL: The patient awake, responsive, in no acute distress. HEAD AND NECK: Pupils equal and reactive to light. Anicteric. + NG Tube. NECK: Supple. Right side mass, No JVD. LUNGS: fair air entry. No wheezing or rales. Decreased air in the bases. HEART: S1 and S2. Regular rhythm. No gallops. ABDOMEN: Soft, nondistended, and nontender. Positive bowel sounds. EXTREMITIES: No cyanosis, clubbing, or edema. LUE piccline. NEUROLOGIC: Cranial nerves II through XII grossly unremarkable. Motor is 5/5 in all extremities. Gait unsteady. PSYCHIATRIC: Mood is depressed. Assessment/Plan Problem List: (1) Dysphagia Assessment & Plan: See video swallow result. Advance diet and D/C NG tube. See GI note. (2) HTN (hypertension) (3) Neutropenia Assessment & Plan: Improving. Due to chemotherapy. See heme/onc note. (4) Hypotension (5) Squamous cell carcinoma of larynx Assessment/Plan D/C in am with home health. D/W wiife and patient. TAMIKA SANTAMARIA Jun 12, 2017 19:51
[2017-06-12 20:00] VITALS: BP 137/84
[2017-06-12] MEDS ORDERED: TBO-Filgrastim 300 mcg/0.5ml SQ SCH (21:00)
[2017-06-12] MEDS: Dyna-Hex 2% Top Sol 2oz TOPIC SCH (21:32)
[2017-06-13] VITALS: BP 141/91
[2017-06-13 04:00] VITALS: BP 137/73
[2017-06-13] MEDS: Morphine Sulfate 2mg/ml Inj IVP PRN ×2 (04:09)
--- NOTE | 2017-06-13 06:52 | Internal Med Progress Note ---
Subjective Physician Name Joseph March Attending Physician Joseph March MD Current Medications Medications (Trade) Dose Ordered Sig/Baron Route PRN Reason Start Time Stop Time Status Last Admin Dose Admin Acetaminophen (Tylenol) 650 mg Q4H PRN ORAL T>100.5 06/09/17 14:30 07/08/17 14:29 06/10/17 08:59 Albuterol/ Ipratropium (Albuterol/ Ipratropium) 3 ml Q4H PRN HHN Shortness of Breath 06/11/17 13:45 06/15/17 13:44 Amlodipine Besylate (Norvasc) 10 mg DAILY ORAL 06/10/17 09:00 07/10/17 08:59 06/12/17 08:58 Atenolol (Tenormin) 50 mg Q12HR ORAL 06/10/17 09:00 07/10/17 08:59 06/12/17 21:32 Cefepime HCl 2 gm/ Dextrose 55 ml @ 110 mls/hr Q12HR@1100,2300 IV 06/11/17 23:00 06/18/17 22:59 06/12/17 21:32 Chlorhexidine Gluconate (Jaclyn-Hex 2%) 1 applic DAILY@2000 TOPIC 06/09/17 20:00 07/09/17 19:59 06/12/17 21:32 Dextrose/ Electrolytes 1,000 ml @ 75 mls/hr [id number] IV 06/10/17 12:00 07/10/17 11:59 06/12/17 23:49 Fluconazole (Diflucan) 200 mg DAILY@1500 ORAL 06/13/17 15:00 06/20/17 14:59 Heparin Sodium (Porcine) (Heparin 5000 units/ml) 5,000 units EVERY 12 HOURS SUBQ 06/09/17 21:00 07/09/17 08:59 Morphine Sulfate (Morphine Sulfate) 2 mg Q4H PRN IVP Moderate Pain (Pain Scale 4-6) 06/09/17 14:30 06/15/17 14:29 06/13/17 04:09 Nitroglycerin (Ntg) 0.4 mg Q5MIN X 3 DOSES PRN SL Prn Chest Pain 06/09/17 14:00 07/08/17 17:59 Ondansetron HCl (Zofran) 4 mg Q6H PRN IVP Nausea & Vomiting 06/09/17 14:30 07/08/17 14:29 06/13/17 00:29 Polyethylene Glycol (Miralax) 17 gm DAILYPRN PRN ORAL Constipation 06/09/17 14:30 07/08/17 14:29 06/12/17 11:30 Prednisone (predniSONE) 20 mg BID ORAL 06/10/17 09:00 07/10/17 08:59 06/12/17 17:28 Temazepam (Restoril) 15 mg HSPRN PRN ORAL Insomnia 06/09/17 21:00 06/15/17 20:59 Allergies: Coded Allergies: No Known Allergies (Unverified , 06/08/17) Subjective awake, alert, responsive,feeling okay, some cough, No CP or SOB. Objective Last Vital Signs Date Time Temp Pulse Resp B/P (MAP) Pulse Ox O2 Delivery O2 Flow Rate FiO2 06/13/17 04:00 97.5 73 20 137/73 98 Room Air Laboratory Tests Test 06/12/17 10:35 06/13/17 05:55 Vancomycin Level Trough 2.3 ug/mL (5.0-12.0) L White Blood Count Pending Red Blood Count Pending Hemoglobin Pending Hematocrit Pending Mean Corpuscular Volume Pending Mean Corpuscular Hemoglobin Pending Mean Corpuscular Hemoglobin Concent Pending Red Cell Distribution Width Pending Platelet Count Pending Mean Platelet Volume Pending Neutrophils (%) (Auto) Pending Lymphocytes (%) (Auto) Pending Monocytes (%) (Auto) Pending Eosinophils (%) (Auto) Pending Basophils (%) (Auto) Pending Sodium Level Pending Potassium Level Pending Chloride Level Pending Carbon Dioxide Level Pending Blood Urea Nitrogen Pending Creatinine Pending Estimat Glomerular Filtration Rate Pending Glucose Level Pending Calcium Level Pending Phosphorus Level Pending Magnesium Level Pending Total Bilirubin Pending Aspartate Amino Transf (AST/SGOT) Pending Alanine Aminotransferase (ALT/SGPT) Pending Alkaline Phosphatase Pending Total Protein Pending Albumin Pending Globulin Pending Objective GENERAL: The patient awake, responsive, in no acute distress. HEAD AND NECK: Pupils equal and reactive to light. Anicteric. removed NG Tube. NECK: Supple. Right side mass, No JVD. LUNGS: fair air entry. No wheezing or rales. Decreased air in the bases. HEART: S1 and S2. Regular rhythm. No gallops. ABDOMEN: Soft, nondistended, and nontender. Positive bowel sounds. EXTREMITIES: No cyanosis, clubbing, or edema. LUE piccline. NEUROLOGIC: Cranial nerves II through XII grossly unremarkable. Motor is 5/5 in all extremities. Gait unsteady. Assessment/Plan Assessment/Plan ASSESSMENT: 1. Neutropenic / Pancytopenia most likely chemotherapy induced. 2. Severe dehydration and hypovolemia. 3. History of locally advanced laryngeal squamous cell carcinoma. 4. History of hypertension, presently hypotensive. 5. Dysphagia s/p NG tube placement. 6. Hypokalemia. 7. Hypomagnesemia PLAN: Code status: Full Code. DVT prophylaxis with SCD. Abx: Vanco / Cefepime DC Gronix injection DC Home today F/U with oncologist today. 2D Echo Technically difficult study due to poor acoustical windows. Normal left ventricular chamber size, systolic function and wall motion. Left ventricular ejection fraction estimated to be 60-65%. No evidence of left ventricular hypertrophy. No evidence of pericardial or pleural effusion. All other cardiac chamber sizes are within normal limits. Focal aortic valve sclerosis with adequate cusp excursion. Thickened mitral valve leaflets with normal excursion. Mild mitral annulus and aortic root calcification. Pulmonic valve not well visualized. Normal tricuspid valve structure. IVC is not obtainable. A color flow and spectral Doppler study was performed and revealed: No aortic regurgitation. No mitral regurgitation. Mitral diastolic velocities suggest reduced left ventricular relaxation c/w diastolic dysfunction grade 1. No tricuspid regurgitation. Joseph March MD Jun 13, 2017 06:52
[2017-06-13 07:29] LABS: ALANINE AMINOTRANSFERASE 19 U/L (12-78); ALBUMIN/GLOBULIN RATIO 0.6 (1.0-2.7); ANION GAP 6 mmol/L (5-15); ASPARTATE AMINO TRANSFERASE 17 U/L (15-37); CALCIUM 8.5 MG/DL (8.5-10.1); CARBON DIOXIDE 29 MMOL/L (21-32); CHLORIDE 98 MMOL/L (98-107); CREATININE 1.2 MG/DL (0.55-1.30); MAGNESIUM 1.1 MG/DL (1.8-2.4); PHOSPHORUS 2.4 MG/DL (2.5-4.9); SODIUM 133 MMOL/L (136-145); TOTAL PROTEIN 6.3 G/DL (6.4-8.2)
[2017-06-13 07:32] LABS: MEAN CORPUSCULAR HEMOGLOBIN 31.2 PG (27.0-31.0); MEAN CORPUSCULAR VOLUME 95 FL (80-99); MEAN PLATELET VOLUME 8.9 FL (6.5-10.1); PLATELET COUNT 93 K/UL (150-450); RED BLOOD COUNT 4.27 M/UL (4.70-6.10); RED CELL DISTRIBUTION WIDTH 11.8 % (11.6-14.8); WHITE BLOOD COUNT 13.8 K/UL (4.8-10.8)
[2017-06-13 08:00] VITALS: BP 140/75
[2017-06-13 08:51] VITALS: BP 140/75
[2017-06-13 09:01] LABS: BAND NEUTROPHILS % (MANUAL) 16 % (0-8); BASOPHILS % (MANUAL) 0 % (0-2); EOSINOPHILS % (MANUAL) 0 % (0-3); LYMPHOCYTES % (MANUAL) 10 % (20-45); NEUTROPHILS % (MANUAL) 69 % (45-75); PLATELET ESTIMATE DECREASED; PLATELET MORPHOLOGY NORMAL; TOTAL CELLS COUNTED 100
[2017-06-13 09:02] LABS: HYPOCHROMASIA 1+
[2017-06-13] MEDS: Heparin 5000 units/ml inj SUBQ SCH (09:30)
[2017-06-13] MEDS ORDERED: Tubing IV Secondary IV ONE (10:34)
--- NOTE | 2017-06-13 12:12 | Infectious Diseases Prog Note ---
Assessment/Plan Assessment/Plan ASSESSMENT: 76 y/o male with: // Neutropenic fever- resolved; now mild leukocytosis-likely due to Neupogen effect Bcx NTD, ucx NTD CXR : lungs clear //pancytopenia 2/2 antineoplastic chemotherapy, // Odynophagia / dysphagia r/o helena esophagitis ; improving // Laryngeal CA SP chemo # 1 ( 06/02 ) // Near syncope // Dehydration // ROYAL, m/l pre-renal dehydration // Hyponatremia / electrolyte imbalance // Hyperglycemia // Recent LUE PICC ~1week // HTN // NKDA // Full Code PLAN: -Continue empiric cefepime d# 6/7 and fluconazole d# 5/14 -upon discharge, switch Cefepime to Cipro to complete empiric course -monitor Qtc on azole therapy -06/12 SP IV Vancomycin #5 - f/u final cultures - monitor CBC, temperatures - monitor BMP - IVF / nutritional support Subjective Allergies: Coded Allergies: No Known Allergies (Unverified , 06/08/17) Subjective afebrile in 72 hrs neutropenia resolved, now mild leukocytosis Bcx NTD, ucx ntd Objective Vital Signs Last 24 Hour Vital Signs Date Time Temp Pulse Resp B/P (MAP) Pulse Ox O2 Delivery O2 Flow Rate FiO2 06/13/17 08:51 77 140/75 06/13/17 08:42 77 140/75 06/13/17 08:00 97.1 77 16 140/75 98 Room Air 06/13/17 07:18 74 16 Room Air 06/13/17 04:00 97.5 73 20 137/73 98 Room Air 06/13/17 00:00 97.5 76 20 141/91 97 Room Air 06/12/17 21:32 92 137/84 06/12/17 20:00 98.2 92 20 137/84 97 Room Air Height (Feet): 5 Height (Inches): 11.00 Weight (Pounds): 165 Objective General Appearance: no acute distress, cachetic HEENT: normocephalic, atraumatic, anicteric, other - NGT with TF Respiratory/Chest: lungs clear, no respiratory distress, no accessory muscle use Cardiovascular: normal peripheral pulses, normal rate Abdomen: normal bowel sounds, no organomegaly Extremities: no edema, pedal pulses normal Neurologic/Psychiatric: no motor/sensory deficits, alert, oriented x 3, responsive Musculoskeletal: atrophy Microbiology Date/Time Source Procedure Growth Status 06/12/17 05:30 Urine,Clean Catch Urine Culture - Preliminary NO GROWTH Resulted Laboratory Tests Test 06/13/17 05:55 White Blood Count 13.8 K/UL (4.8-10.8) #H Red Blood Count 4.27 M/UL (4.70-6.10) L Hemoglobin 13.3 G/DL (14.2-18.0) L Hematocrit 40.4 % (42.0-52.0) L Mean Corpuscular Volume 95 FL (80-99) Mean Corpuscular Hemoglobin 31.2 PG (27.0-31.0) H Mean Corpuscular Hemoglobin Concent 33.0 G/DL (32.0-36.0) Red Cell Distribution Width 11.8 % (11.6-14.8) Platelet Count 93 K/UL (150-450) L Mean Platelet Volume 8.9 FL (6.5-10.1) Neutrophils (%) (Auto) % (45.0-75.0) Lymphocytes (%) (Auto) % (20.0-45.0) Monocytes (%) (Auto) % (1.0-10.0) Eosinophils (%) (Auto) % (0.0-3.0) Basophils (%) (Auto) % (0.0-2.0) Differential Total Cells Counted 100 Neutrophils % (Manual) 69 % (45-75) Lymphocytes % (Manual) 10 % (20-45) L Monocytes % (Manual) 5 % (1-10) Eosinophils % (Manual) 0 % (0-3) Basophils % (Manual) 0 % (0-2) Band Neutrophils 16 % (0-8) H Platelet Estimate Decreased L Platelet Morphology Normal Hypochromasia 1+ Sodium Level 133 MMOL/L (136-145) L Potassium Level 5.0 MMOL/L (3.5-5.1) Chloride Level 98 MMOL/L (98-107) Carbon Dioxide Level 29 MMOL/L (21-32) Anion Gap 6 mmol/L (5-15) Blood Urea Nitrogen 22 mg/dL (7-18) H Creatinine 1.2 MG/DL (0.55-1.30) Estimat Glomerular Filtration Rate mL/min (>60) Glucose Level 131 MG/DL (74-106) H Calcium Level 8.5 MG/DL (8.5-10.1) Phosphorus Level 2.4 MG/DL (2.5-4.9) L Magnesium Level 1.1 MG/DL (1.8-2.4) L Total Bilirubin 0.3 MG/DL (0.2-1.0) Aspartate Amino Transf (AST/SGOT) 17 U/L (15-37) Alanine Aminotransferase (ALT/SGPT) 19 U/L (12-78) Alkaline Phosphatase 50 U/L (46-116) Total Protein 6.3 G/DL (6.4-8.2) L Albumin 2.3 G/DL (3.4-5.0) L Globulin 4.0 g/dL Albumin/Globulin Ratio 0.6 (1.0-2.7) L Jessica Corona M.D. Jun 13, 2017 12:12
--- NOTE | 2017-06-13 14:19 | General Progress Note ---
Assessment/Plan Assessment/Plan ASSESSMENT AND PLAN: 1. Laryngeal carcinoma, squamous cell, on cisplatinum, Taxotere, prednisone, and 5-fluorouracil. 2. Neutropenia 2/2 myelosuppressive chemotherapy. He is receiving tbo filgastrim. wbc count now within normal limits 3. Lactic acidosis, slightly elevated lactic acid. 4. Dehydration, likely secondary to recent administration of chemotherapy. 5. Hypertension, currently well controlled Subjective Allergies: Coded Allergies: No Known Allergies (Unverified , 06/08/17) All Systems: reviewed and negative except above Subjective NAD Objective Last 24 Hour Vital Signs Date Time Temp Pulse Resp B/P (MAP) Pulse Ox O2 Delivery O2 Flow Rate FiO2 06/13/17 08:51 77 140/75 06/13/17 08:42 77 140/75 06/13/17 08:00 97.1 77 16 140/75 98 Room Air 06/13/17 07:18 74 16 Room Air 06/13/17 04:00 97.5 73 20 137/73 98 Room Air 06/13/17 00:00 97.5 76 20 141/91 97 Room Air 06/12/17 21:32 92 137/84 06/12/17 20:00 98.2 92 20 137/84 97 Room Air Laboratory Tests 06/13/17 05:55: White Blood Count 13.8#H, Red Blood Count 4.27L, Hemoglobin 13.3L, Hematocrit 40.4L, Mean Corpuscular Volume 95, Mean Corpuscular Hemoglobin 31.2H, Mean Corpuscular Hemoglobin Concent 33.0, Red Cell Distribution Width 11.8, Platelet Count 93L, Mean Platelet Volume 8.9, Neutrophils (%) (Auto) , Lymphocytes (%) ( Auto) , Monocytes (%) (Auto) , Eosinophils (%) (Auto) , Basophils (%) (Auto) , Differential Total Cells Counted 100, Neutrophils % (Manual) 69, Lymphocytes % ( Manual) 10L, Monocytes % (Manual) 5, Eosinophils % (Manual) 0, Basophils % ( Manual) 0, Band Neutrophils 16H, Platelet Estimate DecreasedL, Platelet Morphology Normal, Hypochromasia 1+, Sodium Level 133L, Potassium Level 5.0, Chloride Level 98, Carbon Dioxide Level 29, Anion Gap 6, Blood Urea Nitrogen 22H , Creatinine 1.2, Estimat Glomerular Filtration Rate , Glucose Level 131H, Calcium Level 8.5, Phosphorus Level 2.4L, Magnesium Level 1.1L, Total Bilirubin 0.3, Aspartate Amino Transf (AST/SGOT) 17, Alanine Aminotransferase (ALT/SGPT) 19, Alkaline Phosphatase 50, Total Protein 6.3L, Albumin 2.3L, Globulin 4.0, Albumin/Globulin Ratio 0.6L Height (Feet): 5 Height (Inches): 11.00 Weight (Pounds): 165 General Appearance: no apparent distress EENT: normal ENT inspection Neck: normal alignment Cardiovascular: normal peripheral pulses Respiratory/Chest: chest wall non-tender Skin: normal pigmentation Tripp Quispe Jun 13, 2017 14:19
[2017-06-13] MEDS ORDERED: Fluconazole 100mg tab ORAL SCH (15:00)
--- NOTE | 2017-06-13 15:15 | General Progress Note ---
Assessment/Plan Assessment/Plan Assessment - Laryngeal CA - neutropenia - resolved - dysphagia - s/p NJT Recommendations - continue po - watch po intake and hydration - d/c planning - close outpt f/u Subjective Allergies: Coded Allergies: No Known Allergies (Unverified , 06/08/17) Subjective Feels OK no new complaints NJT out passed swallow Objective Last 24 Hour Vital Signs Date Time Temp Pulse Resp B/P (MAP) Pulse Ox O2 Delivery O2 Flow Rate FiO2 06/13/17 08:51 77 140/75 06/13/17 08:42 77 140/75 06/13/17 08:00 97.1 77 16 140/75 98 Room Air 06/13/17 07:18 74 16 Room Air 06/13/17 04:00 97.5 73 20 137/73 98 Room Air 06/13/17 00:00 97.5 76 20 141/91 97 Room Air 06/12/17 21:32 92 137/84 06/12/17 20:00 98.2 92 20 137/84 97 Room Air Laboratory Tests 06/13/17 05:55: White Blood Count 13.8#H, Red Blood Count 4.27L, Hemoglobin 13.3L, Hematocrit 40.4L, Mean Corpuscular Volume 95, Mean Corpuscular Hemoglobin 31.2H, Mean Corpuscular Hemoglobin Concent 33.0, Red Cell Distribution Width 11.8, Platelet Count 93L, Mean Platelet Volume 8.9, Neutrophils (%) (Auto) , Lymphocytes (%) ( Auto) , Monocytes (%) (Auto) , Eosinophils (%) (Auto) , Basophils (%) (Auto) , Differential Total Cells Counted 100, Neutrophils % (Manual) 69, Lymphocytes % ( Manual) 10L, Monocytes % (Manual) 5, Eosinophils % (Manual) 0, Basophils % ( Manual) 0, Band Neutrophils 16H, Platelet Estimate DecreasedL, Platelet Morphology Normal, Hypochromasia 1+, Sodium Level 133L, Potassium Level 5.0, Chloride Level 98, Carbon Dioxide Level 29, Anion Gap 6, Blood Urea Nitrogen 22H , Creatinine 1.2, Estimat Glomerular Filtration Rate , Glucose Level 131H, Calcium Level 8.5, Phosphorus Level 2.4L, Magnesium Level 1.1L, Total Bilirubin 0.3, Aspartate Amino Transf (AST/SGOT) 17, Alanine Aminotransferase (ALT/SGPT) 19, Alkaline Phosphatase 50, Total Protein 6.3L, Albumin 2.3L, Globulin 4.0, Albumin/Globulin Ratio 0.6L Height (Feet): 5 Height (Inches): 11.00 Weight (Pounds): 165 Objective WDWN AA MAN NCAT (+) NJT (+) (R) neck swelling CTA RR soft No edema BRETT RAPHAEL Jun 13, 2017 15:15
--- NOTE | 2017-06-13 15:42 | Cardiology Report ---
APPROVED REPORT EKG Measurement Heart [id number] Normal sinus rhythm Right bundle branch block Left anterior fascicular block Bifascicular block Abnormal ECG
--- NOTE | 2017-06-13 15:53 | Pulmonology Progress Note ---
Assessment/Plan Problems: (1) Sepsis (2) Neutropenia (3) Hypotension (4) Squamous cell carcinoma of larynx (5) Near syncope (6) At high risk for aspiration Assessment/Plan start feeding dc neutropenic isolation, WBC better now check electrolytes f/u swallow study results. Subjective ROS Limited/Unobtainable: No Interval Events: PASSED SWALLOW STUDY Allergies: Coded Allergies: No Known Allergies (Unverified , 06/08/17) Objective Last 24 Hour Vital Signs Date Time Temp Pulse Resp B/P (MAP) Pulse Ox O2 Delivery O2 Flow Rate FiO2 06/13/17 08:51 77 140/75 06/13/17 08:42 77 140/75 06/13/17 08:00 97.1 77 16 140/75 98 Room Air 06/13/17 07:18 74 16 Room Air 06/13/17 04:00 97.5 73 20 137/73 98 Room Air 06/13/17 00:00 97.5 76 20 141/91 97 Room Air 06/12/17 21:32 92 137/84 06/12/17 20:00 98.2 92 20 137/84 97 Room Air General Appearance: WD/WN HEENT: normocephalic, atraumatic Respiratory/Chest: chest wall non-tender, lungs clear Cardiovascular: normal peripheral pulses, regular rhythm Abdomen: normal bowel sounds, no organomegaly Skin: no rash, no lesions 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 Lymphatic: no neck adenopathy Musculoskeletal: normal muscle bulk Microbiology Date/Time Source Procedure Growth Status 06/12/17 05:30 Urine,Clean Catch Urine Culture - Preliminary NO GROWTH Resulted Laboratory Tests 06/13/17 05:55: White Blood Count 13.8#H, Red Blood Count 4.27L, Hemoglobin 13.3L, Hematocrit 40.4L, Mean Corpuscular Volume 95, Mean Corpuscular Hemoglobin 31.2H, Mean Corpuscular Hemoglobin Concent 33.0, Red Cell Distribution Width 11.8, Platelet Count 93L, Mean Platelet Volume 8.9, Neutrophils (%) (Auto) , Lymphocytes (%) ( Auto) , Monocytes (%) (Auto) , Eosinophils (%) (Auto) , Basophils (%) (Auto) , Differential Total Cells Counted 100, Neutrophils % (Manual) 69, Lymphocytes % ( Manual) 10L, Monocytes % (Manual) 5, Eosinophils % (Manual) 0, Basophils % ( Manual) 0, Band Neutrophils 16H, Platelet Estimate DecreasedL, Platelet Morphology Normal, Hypochromasia 1+, Sodium Level 133L, Potassium Level 5.0, Chloride Level 98, Carbon Dioxide Level 29, Anion Gap 6, Blood Urea Nitrogen 22H , Creatinine 1.2, Estimat Glomerular Filtration Rate , Glucose Level 131H, Calcium Level 8.5, Phosphorus Level 2.4L, Magnesium Level 1.1L, Total Bilirubin 0.3, Aspartate Amino Transf (AST/SGOT) 17, Alanine Aminotransferase (ALT/SGPT) 19, Alkaline Phosphatase 50, Total Protein 6.3L, Albumin 2.3L, Globulin 4.0, Albumin/Globulin Ratio 0.6L [employer] Jun 13, 2017 15:53
--- NOTE | 2017-06-13 16:28 | Diagnostic Imaging Report ---
Indication: Dysphasia Procedure and findings: Real-time fluoroscopic imaging performed in a lateral projection in conjunction with the speech pathologist evaluation. Variable consistencies of barium given per mouth. Findings: Significant abnormalities of both oral and pharyngeal phases of swallowing are demonstrated. Total fluoroscopic time 302 seconds. Trace laryngeal penetration demonstrated on one of the sequences using thin barium. Abnormal video swallow. Please refer to speech pathology evaluation for more information.
--- NOTE | 2017-06-13 22:45 | General Progress Note ---
Subjective Date patient seen: Jun 13, 2017 Neurologic/Psychiatric: Reports: depressed, emotional problems Allergies: Coded Allergies: No Known Allergies (Unverified , 06/08/17) Objective Last 24 Hour Vital Signs Date Time Temp Pulse Resp B/P (MAP) Pulse Ox O2 Delivery O2 Flow Rate FiO2 06/13/17 08:51 77 140/75 06/13/17 08:42 77 140/75 06/13/17 08:00 97.1 77 16 140/75 98 Room Air 06/13/17 07:18 74 16 Room Air 06/13/17 04:00 97.5 73 20 137/73 98 Room Air 06/13/17 00:00 97.5 76 20 141/91 97 Room Air Laboratory Tests 06/13/17 05:55: White Blood Count 13.8#H, Red Blood Count 4.27L, Hemoglobin 13.3L, Hematocrit 40.4L, Mean Corpuscular Volume 95, Mean Corpuscular Hemoglobin 31.2H, Mean Corpuscular Hemoglobin Concent 33.0, Red Cell Distribution Width 11.8, Platelet Count 93L, Mean Platelet Volume 8.9, Neutrophils (%) (Auto) , Lymphocytes (%) ( Auto) , Monocytes (%) (Auto) , Eosinophils (%) (Auto) , Basophils (%) (Auto) , Differential Total Cells Counted 100, Neutrophils % (Manual) 69, Lymphocytes % ( Manual) 10L, Monocytes % (Manual) 5, Eosinophils % (Manual) 0, Basophils % ( Manual) 0, Band Neutrophils 16H, Platelet Estimate DecreasedL, Platelet Morphology Normal, Hypochromasia 1+, Sodium Level 133L, Potassium Level 5.0, Chloride Level 98, Carbon Dioxide Level 29, Anion Gap 6, Blood Urea Nitrogen 22H , Creatinine 1.2, Estimat Glomerular Filtration Rate , Glucose Level 131H, Calcium Level 8.5, Phosphorus Level 2.4L, Magnesium Level 1.1L, Total Bilirubin 0.3, Aspartate Amino Transf (AST/SGOT) 17, Alanine Aminotransferase (ALT/SGPT) 19, Alkaline Phosphatase 50, Total Protein 6.3L, Albumin 2.3L, Globulin 4.0, Albumin/Globulin Ratio 0.6L Height (Feet): 5 Height (Inches): 11.00 Weight (Pounds): 165 Myles Nieves M.D. Jun 13, 2017 22:45
--- NOTE | 2017-06-13 22:45 | General Progress Note ---
Assessment/Plan Status: stable, progressing Subjective Date patient seen: Jun 12, 2017 Neurologic/Psychiatric: Reports: anxiety, depressed, emotional problems Allergies: Coded Allergies: No Known Allergies (Unverified , 06/08/17) Objective Last 24 Hour Vital Signs Date Time Temp Pulse Resp B/P (MAP) Pulse Ox O2 Delivery O2 Flow Rate FiO2 06/13/17 08:51 77 140/75 06/13/17 08:42 77 140/75 06/13/17 08:00 97.1 77 16 140/75 98 Room Air 06/13/17 07:18 74 16 Room Air 06/13/17 04:00 97.5 73 20 137/73 98 Room Air 06/13/17 00:00 97.5 76 20 141/91 97 Room Air Laboratory Tests 06/13/17 05:55: White Blood Count 13.8#H, Red Blood Count 4.27L, Hemoglobin 13.3L, Hematocrit 40.4L, Mean Corpuscular Volume 95, Mean Corpuscular Hemoglobin 31.2H, Mean Corpuscular Hemoglobin Concent 33.0, Red Cell Distribution Width 11.8, Platelet Count 93L, Mean Platelet Volume 8.9, Neutrophils (%) (Auto) , Lymphocytes (%) ( Auto) , Monocytes (%) (Auto) , Eosinophils (%) (Auto) , Basophils (%) (Auto) , Differential Total Cells Counted 100, Neutrophils % (Manual) 69, Lymphocytes % ( Manual) 10L, Monocytes % (Manual) 5, Eosinophils % (Manual) 0, Basophils % ( Manual) 0, Band Neutrophils 16H, Platelet Estimate DecreasedL, Platelet Morphology Normal, Hypochromasia 1+, Sodium Level 133L, Potassium Level 5.0, Chloride Level 98, Carbon Dioxide Level 29, Anion Gap 6, Blood Urea Nitrogen 22H , Creatinine 1.2, Estimat Glomerular Filtration Rate , Glucose Level 131H, Calcium Level 8.5, Phosphorus Level 2.4L, Magnesium Level 1.1L, Total Bilirubin 0.3, Aspartate Amino Transf (AST/SGOT) 17, Alanine Aminotransferase (ALT/SGPT) 19, Alkaline Phosphatase 50, Total Protein 6.3L, Albumin 2.3L, Globulin 4.0, Albumin/Globulin Ratio 0.6L Height (Feet): 5 Height (Inches): 11.00 Weight (Pounds): 165 Farhadi,Pantea M.D. Jun 13, 2017 22:45
--- NOTE | 2017-06-13 22:45 | Consultation ---
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 the pt is depressed and has low and anhedonia Allergies: Coded Allergies: No Known Allergies (Unverified , 06/08/17) Medication History Scheduled Amlodipine Bes/Olmesartan Med (Tylor 10-20 Mg Tablet), Unknown Dose ORAL DAILY, ( Reported) Atenolol* (Tenormin*), 50 MG ORAL BID, (Reported) Prednisone* (Prednisone*), 20 MG ORAL BID, (Reported) Scheduled PRN Ondansetron* (Zofran*), 8 MG ORAL PRN PRN for Nausea & Vomiting, (Reported) Discontinued Medications Indomethacin (Indocin), 75 MG ORAL, (Reported) Discontinued Reason: MD discontinued med Pegfilgrastim (Neulasta), 6 MG SQ after chemo, (Reported) Discontinued Reason: Therapy completed Ramipril* (Ramipril*), 5 MG ORAL BID, (Reported) Discontinued Reason: Therapy completed Patient History Limited by: medical condition History Provided By: Patient, Medical Record, PMD Healthcare decision maker N Resuscitation status Full Code Advanced Directive on File Past Medical/Surgical History Past Medical/Surgical History: (1) Sepsis (2) At high risk for aspiration (3) Dysphagia (4) HTN (hypertension) Review of Systems Psychiatric: Reports: prior hx, anxiety, depressed feelings, emotional problems Physical Exam General Appearance: no apparent distress, alert Neurologic: alert, oriented x 3, responsive, depressed affect Last 24 Hour Vital Signs Date Time Temp Pulse Resp B/P (MAP) Pulse Ox O2 Delivery O2 Flow Rate FiO2 06/13/17 08:51 77 140/75 06/13/17 08:42 77 140/75 06/13/17 08:00 97.1 77 16 140/75 98 Room Air 06/13/17 07:18 74 16 Room Air 06/13/17 04:00 97.5 73 20 137/73 98 Room Air 06/13/17 00:00 97.5 76 20 141/91 97 Room Air Laboratory Tests Test 06/13/17 05:55 White Blood Count 13.8 K/UL (4.8-10.8) #H Red Blood Count 4.27 M/UL (4.70-6.10) L Hemoglobin 13.3 G/DL (14.2-18.0) L Hematocrit 40.4 % (42.0-52.0) L Mean Corpuscular Volume 95 FL (80-99) Mean Corpuscular Hemoglobin 31.2 PG (27.0-31.0) H Mean Corpuscular Hemoglobin Concent 33.0 G/DL (32.0-36.0) Red Cell Distribution Width 11.8 % (11.6-14.8) Platelet Count 93 K/UL (150-450) L Mean Platelet Volume 8.9 FL (6.5-10.1) Neutrophils (%) (Auto) % (45.0-75.0) Lymphocytes (%) (Auto) % (20.0-45.0) Monocytes (%) (Auto) % (1.0-10.0) Eosinophils (%) (Auto) % (0.0-3.0) Basophils (%) (Auto) % (0.0-2.0) Differential Total Cells Counted 100 Neutrophils % (Manual) 69 % (45-75) Lymphocytes % (Manual) 10 % (20-45) L Monocytes % (Manual) 5 % (1-10) Eosinophils % (Manual) 0 % (0-3) Basophils % (Manual) 0 % (0-2) Band Neutrophils 16 % (0-8) H Platelet Estimate Decreased L Platelet Morphology Normal Hypochromasia 1+ Sodium Level 133 MMOL/L (136-145) L Potassium Level 5.0 MMOL/L (3.5-5.1) Chloride Level 98 MMOL/L (98-107) Carbon Dioxide Level 29 MMOL/L (21-32) Anion Gap 6 mmol/L (5-15) Blood Urea Nitrogen 22 mg/dL (7-18) H Creatinine 1.2 MG/DL (0.55-1.30) Estimat Glomerular Filtration Rate mL/min (>60) Glucose Level 131 MG/DL (74-106) H Calcium Level 8.5 MG/DL (8.5-10.1) Phosphorus Level 2.4 MG/DL (2.5-4.9) L Magnesium Level 1.1 MG/DL (1.8-2.4) L Total Bilirubin 0.3 MG/DL (0.2-1.0) Aspartate Amino Transf (AST/SGOT) 17 U/L (15-37) Alanine Aminotransferase (ALT/SGPT) 19 U/L (12-78) Alkaline Phosphatase 50 U/L (46-116) Total Protein 6.3 G/DL (6.4-8.2) L Albumin 2.3 G/DL (3.4-5.0) L Globulin 4.0 g/dL Albumin/Globulin Ratio 0.6 (1.0-2.7) L Height (Feet): 5 Height (Inches): 11.00 Weight (Pounds): 165 Assessment/Plan Status: stable Assessment/Plan mdd lexapro 10mg Myles Peters M.D. Jun 13, 2017 22:45
--- NOTE | 2017-06-14 15:55 | General Progress Note ---
Assessment/Plan Status: stable Subjective Neurologic/Psychiatric: Reports: anxiety, depressed, emotional problems Allergies: Coded Allergies: No Known Allergies (Unverified , 06/08/17) Objective Height (Feet): 5 Height (Inches): 11.00 Weight (Pounds): 165 General Appearance: no apparent distress, alert Neurologic: responsive, normal mood/affect Myles Nieves M.D. Jun 14, 2017 15:55
--- NOTE | 2017-06-15 18:30 | Discharge Summary 2 SIG ---
DATE OF ADMISSION: 06/08/2017 DATE OF DISCHARGE: 06/13/2017 CONSULTANTS: 1. Myles Nieves M.D. 2. Citlaly Gaspar M.D. 3. Tc Montenegro M.D. 4. Jessica Corona M.D. 5. Tripp Quispe M.D. 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 He presented to the hospital from Dr. Ibrahim, oncologist from [facility], due to severe weakness. The patient felt dizzy while he was seen in the clinic. He was found to be hypotensive and has been taking Zofran for nausea as well as Neulasta for neutropenia. He was noted to have blood count of 0.7 at the hand i tube bender office and subsequently, the patient was transferred to the hospital for further evaluation and therapy. On workup, WBC was 0.4, platelets were 85. Sodium was 129, creatinine was 1.5. He was admitted to telemetry for neutropenia with severe dehydration and hypovolemia. He also had dysphagia and thrombocytopenia. He was placed on SCDs for DVT prophylaxis and was seen by hematology/oncologist. The patient has laryngeal carcinoma, squamous cell, continued on cisplatin, Taxotere, prednisone and 5-fluorouracil. He was given filgrastim. He was started empirically on IV vancomycin and cefepime. Neutropenia and pancytopenia secondary to antineoplastic chemotherapy, however, needed to rule out any infection. He was also given empiric fluconazole. He was continued on IV vancomycin and cefepime and fluconazole pending culture results. He had episodes of fever, which eventually resolved. Urine culture did not isolate any growth. On 06/09/2017, Dr. Montenegro was consulted for evaluation of dysphagia and electrolyte abnormality, hyponatremia, possibly from SIADH. Nasojejunal tube was placed by Dr. Montenegro at bedside. Position was verified by bedside and x-ray. He was started on tube feedings. He underwent swallow evaluation and video swallow evaluation, and passed. He was eventually started on oral diet with soft easy chew and thin liquid consistency. Cultures did not isolate any growth. WBC eventually normalized. He was seen by Dr. Nieves and was diagnosed with major depressive disorder and was given Lexapro. The patient was alert, awake, responsive. The patient was discharged home to follow up with oncologist. FINAL DIAGNOSES: 1. Neutropenia/pancytopenia, most likely chemotherapy induced. 2. Severe dehydration with hypovolemia. 3. Dysphagia, status post nasojejunal tube placement. 4. Hypokalemia. 5. Hypomagnesemia. 6. Locally advanced pharyngeal squamous cell carcinoma. 7. History of hypertension, presently hypotensive. 8. Major depressive disorder. 9. Lactic acidosis. 10. Neutropenic fever, resolved. 11. Acute kidney injury, most likely prerenal secondary to dehydration. 12. Hyperglycemia. 13. Hyponatremia. DISPOSITION: The patient was discharged home. DISCHARGE MEDICATIONS: Refer to medication list. FOLLOWUP: Follow up with Oncology on the day of discharge. Joseph March M.D. I have been assigned to dictate discharge summary on this account and I was not involved in the patient's management. Iman Polanco N.P. DR: Tristin JOB#: [id number] CC: [id number]
--- NOTE | 2017-06-15 23:11 | Diagnostic Imaging Report ---
APPROVED REPORT CPT Code: 78379 Present Symptoms Lower Extremity Pain: Bilateral BILATERAL: Imaging reveals a patent deep venous system bilaterally. There is no evidence of thrombus within the femoral, popliteal or tibial segments. The greater saphenous veins are also within normal limits. Doppler indicates normal spontaneous flow within these segments.
--- NOTE | 2017-06-27 14:52 | Cardiology Report ---
APPROVED REPORT EKG Measurement Heart [id number] Normal sinus rhythm Left axis deviation Right bundle branch block Abnormal ECG
== END 2017-06-13 10:35 | disposition home or self-care (01) | DRG 809 ==
LOC: EDBD 14:13 → EMR 14:50 → EDBEDREQ 16:29 → 2E 16:51 → 4W 06-09 13:57 → 4E 06-09 17:14
DX: D61.810 Antineoplastic chemotherapy induced pancytopenia (principal); N17.9 Acute kidney failure, unspecified; E87.2 Acidosis; E46 Unspecified protein-calorie malnutrition; I95.9 Hypotension, unspecified; D69.59 Other secondary thrombocytopenia; E87.1 Hypo-osmolality and hyponatremia; E86.0 Dehydration; C32.3 Malignant neoplasm of laryngeal cartilage; E83.42 Hypomagnesemia; R50.81 Fever presenting with conditions classified elsewhere; R13.10 Dysphagia, unspecified; I10 Essential (primary) hypertension; E87.6 Hypokalemia; T45.1X5A Adverse effect of antineoplastic and immunosuppressive drugs, initial encounter; Y92.019 Unspecified place in single-family (private) house as the place of occurrence of the external cause; F32.9 Major depressive disorder, single episode, unspecified; R73.9 Hyperglycemia, unspecified; Z68.23 Body mass index [BMI] 23.0-23.9, adult
CPT/HCPCS: 36415; 71010; 74000; 74230; 80048; 80053; 80202; 83605; 83735; 84100; 85007; 85025; 85610; 85651; 85730; 87040; 87086; 93005; 93306; 93970; 94664; 97802; 99285; J2405